=== PATIENT | female | born 1955 | race Caucasian/White ===

== ENCOUNTER 2020-08-13 12:29 | Outpatient (REF) | payer OTHER, SELFPAY ==
[2020-08-13 14:47] LABS: Alanine Aminotransferase 18 U/L (0-31); Albumin Level 4.1 g/dL (3.5-5.0); Alkaline Phosphatase 41 U/L (39-117); Anion Gap 15 (12-20); Aspartate Amino Transferase 18 U/L (5-31); Bilirubin Total 0.3 mg/dL (0.0-1.0); Blood Urea Nitrogen 38 mg/dL (9-16); Calcium 8.7 mg/dL (8.4-10.2); Carbon Dioxide 25 mmol/L (22-29); Chloride 104 mmol/L (96-108); Cholesterol 181 mg/dL; Estimated Glomerular Filt Rate 28; Glucose Fasting 135 mg/dL (60-99); HDL Cholesterol 69 mg/dL; LDL Cholesterol Calculated 93 mg/dl; Potassium 4.9 mmol/l (3.3-5.1); Sodium 139 mmol/L (135-145); Triglycerides 99 mg/dL
[2020-08-13 14:55] LABS: Creatinine Urine 79.03 mg/dL
[2020-08-13 15:12] LABS: Microalbum/Creatinine Ratio Ur 1003.4 ug/mg cr
[2020-08-13 15:21] LABS: Vitamin B12 461 pg/mL (200-900)
[2020-08-14 08:06] LABS: LDL Cholesterol Direct 80 mg/dL (<100)
== END 2020-08-13 12:30 | disposition home or self-care (01) ==
LOC: HO.10HDL 12:29
PROVIDERS: Visit Provider Internal Medicine Endocrinology, Diabetes & Metabolism
DX: E11.65 Type 2 diabetes mellitus with hyperglycemia (principal)
CPT/HCPCS: 80053; 80061; 82043; 82607; 83721

== ENCOUNTER → 2020-09-30 10:39 | Outpatient (BNVA) | payer OTHER, SELFPAY | PROVIDERS: PCP Internal Medicine; Referring Provider Internal Medicine; Visit Provider Internal Medicine Endocrinology, Diabetes & Metabolism | DX: Z76.89 Persons encountering health services in other specified circumstances (principal) ==

== ENCOUNTER 2020-10-04 11:16 | Outpatient (REF) | payer OTHER, SELFPAY ==
[2020-10-04 14:13] LABS: Estimated Average Glucose 143 mg/dL; Hemoglobin A1C 148.8595 umol/L; Hemoglobin A1c % 6.6 %
[2020-10-04 14:24] LABS: Alanine Aminotransferase 21 U/L (0-31); Albumin Level 4.1 g/dL (3.5-5.0); Alkaline Phosphatase 41 U/L (39-117); Anion Gap 11 (12-20); Aspartate Amino Transferase 20 U/L (5-31); Bilirubin Total 0.2 mg/dL (0.0-1.0); Blood Urea Nitrogen 29 mg/dL (9-16); Calcium 8.9 mg/dL (8.4-10.2); Carbon Dioxide 29 mmol/L (22-29); Chloride 103 mmol/L (96-108); Estimated Glomerular Filt Rate 32; Glucose Fasting 171 mg/dL (60-99); Potassium 4.8 mmol/l (3.3-5.1); Sodium 138 mmol/L (135-145); Total Protein 7.7 g/dL (6.5-8.0)
[2020-10-04 14:49] LABS: Free T4 (Free Thyroxine) 0.85 ng/dL (0.71-1.85); Thyroid Stimulating Hormone 0.65 uIU/mL (0.32-4.0)
== END 2020-10-04 11:17 | disposition home or self-care (01) ==
LOC: HO.10HDL 11:16
PROVIDERS: Visit Provider Internal Medicine Endocrinology, Diabetes & Metabolism
DX: E11.65 Type 2 diabetes mellitus with hyperglycemia (principal); E04.2 Nontoxic multinodular goiter
CPT/HCPCS: 36415; 80053; 83036; 84439; 84443

== ENCOUNTER 2020-12-27 11:33 | Outpatient (REF) | payer OTHER, SELFPAY ==
[2020-12-27 14:03] LABS: Anion Gap 13 (12-20); Blood Urea Nitrogen 38 mg/dL (9-16); Carbon Dioxide 27 mmol/L (22-29); Chloride 104 mmol/L (96-108); Estimated Glomerular Filt Rate 34; Glucose Random 151 mg/dL (60-115); Potassium 5.3 mmol/L (3.3-5.1); Sodium 139 mmol/L (135-145)
== END 2020-12-27 11:34 | disposition home or self-care (01) ==
LOC: HO.10HDL 11:33
PROVIDERS: Visit Provider Internal Medicine Endocrinology, Diabetes & Metabolism
DX: E11.21 Type 2 diabetes mellitus with diabetic nephropathy (principal)
CPT/HCPCS: 36415; 80048

== ENCOUNTER → 2021-01-09 10:28 | Outpatient (BNVA) | payer OTHER, SELFPAY | PROVIDERS: PCP Internal Medicine; Visit Provider Hospitalist | DX: J45.40 Moderate persistent asthma, uncomplicated (principal); G47.33 Obstructive sleep apnea (adult) (pediatric); Z99.89 Dependence on other enabling machines and devices | CPT/HCPCS: 99212 ==

== ENCOUNTER → 2021-02-06 13:04 | Outpatient (BNVA) | payer OTHER, SELFPAY | PROVIDERS: PCP Internal Medicine; Visit Provider Internal Medicine Endocrinology, Diabetes & Metabolism | DX: E11.65 Type 2 diabetes mellitus with hyperglycemia (principal); E11.21 Type 2 diabetes mellitus with diabetic nephropathy; E55.9 Vitamin D deficiency, unspecified; I10 Essential (primary) hypertension; E78.5 Hyperlipidemia, unspecified; E04.2 Nontoxic multinodular goiter; E66.9 Obesity, unspecified; Z79.4 Long term (current) use of insulin | CPT/HCPCS: 82947; 99212 ==

== ENCOUNTER 2021-02-20 11:11 | Outpatient (REF) | payer OTHER, SELFPAY ==
--- NOTE | ~2021-02-20 | US_ITS ---
EXAMINATION: US THYROID CLINICAL INFORMATION: Goiter. Type 2 diabetes mellitus with hyperglycemia. COMPARISON: Ultrasound soft tissue head/neck thyroid dated 03/19/2020 and 09/14/2018. TECHNIQUE: Linear transducer grayscale and color Doppler examination with attention to the region of the thyroid. FINDINGS: SIZE: Measurements of the thyroid lobes and nodules are given in sagittal, anteroposterior and transverse dimensions respectively. Right Thyroid Lobe: 5.3 x 2.1 x 2.2 cm, volume 12.8 mL. Previously 5.4 x 1.7 x 1.9 cm, volume 9.3 mL. Parenchyma: The gland echotexture is homogeneous. Thyroid vascularity is normal. Left Thyroid Lobe: 6.5 x 3.1 x 3.9 cm, volume 41.1 mL. Previously 7.3 x 3.1 x 3.8 cm, volume 44.5 mL. Parenchyma: The gland echotexture is heterogeneous. Thyroid vascularity is normal. Isthmus: 0.6 cm in maximum AP dimension. Previously 1.3 cm. Estimated total number of nodules greater than or equal to 1 cm: 3. Design Painter nodules are described as follows: 1. Location: Right mid. Size: 1.3 x 0.7 x 1.1 cm, volume 0.6 mL. Previously: 0.7 x 0.4 x 0.7 cm, volume 0.1 mL. Nodule characteristics: Composition: Mixed cystic and solid (1). Echogenicity: Hypoechoic (2). Shape: Not taller than wide (0). Margins: Smooth (0). Echogenic Foci: None (0). ACR TI-RADS total points: 3 Previous: n/a ACR TI-RADS category: 3 Previous: n/a Significant change in size (>/= 20% in 2 dimensions and minimal increase of 2 mm or 50% or greater increase in volume): Yes Change in features: No Change in ACR TI-RADS risk category: n/a 2. Location: Right inferior. Size: 1.5 x 1.1 x 1.1 cm, volume 1.0 mL. Previously: 1.0 x 0.7 x 0.8 cm, volume 0.3 mL. Nodule characteristics: Composition: Mixed cystic and solid (1). Echogenicity: Hypoechoic (2). Shape: Not taller than wide (0). Margins: Lobulated (2). Echogenic Foci: None (0). ACR TI-RADS total points: 5 Previous: n/a ACR TI-RADS category: 4 Previous: n/a Significant change in size (>/= 20% in 2 dimensions and minimal increase of 2 mm or 50% or greater increase in volume): Yes Change in features: No Change in ACR TI-RADS risk category: n/a 3. Location: Left mid. Size: 4.6 x 2.9 x 3.5 cm, volume 25.0 mL. Previously: 4.4 x 2.8 x 3.9 cm, volume 25 1 mL. Nodule characteristics: Composition: Solid (2). Echogenicity: Isoechoic (1). Shape: Not taller than wide (0). Margins: Irregular (2). Echogenic Foci: None (0). ACR TI-RADS total points: 5 Previous: n/a ACR TI-RADS category: 4 Previous: n/a Significant change in size (>/= 20% in 2 dimensions and minimal increase of 2 mm or 50% or greater increase in volume): No Change in features: No Change in ACR TI-RADS risk category: n/a NODES: No lymphadenopathy is seen in the tissue surrounding the thyroid gland. US/US thyroid IMPRESSION: Enlarged heterogeneous thyroid gland, left greater than right. There is interval increase in size in both right thyroid nodules. The large nodule in the left lobe does not appear appreciably changed. ACR TI-RADS RECOMMENDATION REFERENCE: Ultrasound-guided fine-needle aspiration, followup ultrasound, no further follow up. * TR1 (0 point) and TR 2 (2 points): No FNA or follow up * TR3 (3 points): FNA if more than or equal to 2.5 cm in maximum dimension, followup ultrasound in 1, 3 and 5 years if 1.5 to 2.4 cm in maximum dimension. * TR4 (4-6 points): FNA if more than or equal to 1.5 cm in maximum dimension, followup ultrasound in 1, 2, 3 and 5 years if 1 to 1.4 cm in maximum dimension. * TR5 (more than or equal to 7 points): FNA if more than or equal to 1 cm in maximum dimension, followup ultrasound every year for 5 years if 0.5 to 0.9 cm in maximum dimension. * TR3, TR4 or TR5 nodules that are below the size threshold for follow up receive no follow up.
== END 2021-02-20 11:12 | disposition home or self-care (01) ==
LOC: HO.US 11:11
PROVIDERS: Visit Provider Internal Medicine Endocrinology, Diabetes & Metabolism
DX: E04.2 Nontoxic multinodular goiter (principal); E11.65 Type 2 diabetes mellitus with hyperglycemia
CPT/HCPCS: 76536

== ENCOUNTER 2021-05-08 14:14 | Outpatient (REF) | payer OTHER, SELFPAY ==
[2021-05-08 16:58] LABS: Alanine Aminotransferase 21 U/L (0-31); Albumin Level 4.2 g/dL (3.5-5.0); Alkaline Phosphatase 46 U/L (39-117); Anion Gap 16 (12-20); Aspartate Amino Transferase 19 U/L (5-31); Bilirubin Total 0.4 mg/dL (0.0-1.0); Blood Urea Nitrogen 45 mg/dL (9-16); Calcium 9.6 mg/dL (8.4-10.2); Carbon Dioxide 25 mmol/L (22-29); Chloride 106 mmol/L (96-108); Cholesterol 203 mg/dL; Estimated Glomerular Filt Rate 28; Glucose Random 130 mg/dL (60-115); HDL Cholesterol 70 mg/dL; LDL Cholesterol Calculated 113 mg/dl; Potassium 5.5 mmol/L (3.3-5.1); Sodium 141 mmol/L (135-145); Total Protein 8.2 g/dL (6.5-8.0); Triglycerides 101 mg/dL
[2021-05-08 17:20] LABS: Free T4 (Free Thyroxine) 0.84 ng/dL (0.71-1.85); Thyroid Stimulating Hormone 0.71 uIU/mL (0.32-4.0); Vitamin D 25-OH Total 33.7 ng/mL (>30)
[2021-05-08 18:03] LABS: Creatinine Urine 73.25 mg/dL
[2021-05-08 18:20] LABS: Microalbum/Creatinine Ratio Ur 1709.2 ug/mg cr
[2021-05-09 08:06] LABS: LDL Cholesterol Direct 102 mg/dL (<100)
== END 2021-05-08 14:15 | disposition home or self-care (01) ==
LOC: HO.LAB 14:14
PROVIDERS: PCP Internal Medicine; Visit Provider Internal Medicine
DX: E11.9 Type 2 diabetes mellitus without complications (principal); J45.40 Moderate persistent asthma, uncomplicated; G47.33 Obstructive sleep apnea (adult) (pediatric); E78.5 Hyperlipidemia, unspecified; I10 Essential (primary) hypertension; E55.9 Vitamin D deficiency, unspecified; E04.2 Nontoxic multinodular goiter; R01.1 Cardiac murmur, unspecified; Z96.41 Presence of insulin pump (external) (internal); Z79.899 Other long term (current) drug therapy
CPT/HCPCS: 36415; 80053; 80061; 82043; 82306; 82947; 83721; 84439; 84443; 99212

== ENCOUNTER 2021-05-15 14:52 | Outpatient (REF) | payer OTHER, SELFPAY ==
[2021-05-15 15:53] LABS: Anion Gap 13 (12-20); Blood Urea Nitrogen 32 mg/dL (9-16); Calcium 9.4 mg/dL (8.4-10.2); Carbon Dioxide 25 mmol/L (22-29); Chloride 109 mmol/L (96-108); Estimated Glomerular Filt Rate 34; Potassium 5.4 mmol/L (3.3-5.1); Sodium 142 mmol/L (135-145)
[2021-05-15 15:58] LABS: Glucose Random 54 mg/dL (60-115)
== END 2021-05-15 14:53 | disposition home or self-care (01) ==
LOC: HO.LAB 14:52
PROVIDERS: PCP Internal Medicine; Visit Provider Internal Medicine
DX: E11.9 Type 2 diabetes mellitus without complications (principal)
CPT/HCPCS: 36415; 80048

== ENCOUNTER 2021-07-24 09:47 | Outpatient (REF) | payer OTHER, SELFPAY ==
--- NOTE | 2021-07-24 11:13 | PM.OP ---
Brief Operative Note Date of Service: 07/24/21 Pre-op diagnosis: Multinodular thyroid Procedure: This is doctor Mireya Mckeon. This is an ultrasound-guided fine-needle aspiration report. Date of Examination: 07/24/2021 Indication: Multinodular Thyroid Porcedure: Procedure was explained to the patient. Alternatives, the risk and benefits were discussed. Written consent was obtained. A time-out was also obtained. After sterile preparation, fine-needle aspiration of a Right Mid Pole 1.3 cm thyroid nodule was performed using direct ultrasound guidance to confirm accurate needle placement. Three aspirations were made using 27 gauge needles. Samples were submitted for cytology. 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 The patient tolerated the procedure well. Aftercare instructions were provided. Impression: Uncomplicated fine needle aspiration biopsy of a Right Mid Pole 1.3 cm thyroid nodule under ultrasound guidance. Surgeon: Mireya Mckeon, DO Was an Cask Maker used for this Procedure?: No Estimated blood loss (mL): 0
[2021-07-24] MEDS: Lidocaine HCl 1 % MPF 5 ML VIAL SUBCUT (12:10)
== END 2021-07-24 09:48 | disposition home or self-care (01) ==
LOC: HO.US 09:47
PROVIDERS: PCP Internal Medicine; Visit Provider Internal Medicine
DX: E04.2 Nontoxic multinodular goiter (principal)
CPT/HCPCS: 10005; 88172; 88173; 88177

== ENCOUNTER → 2021-08-05 13:03 | Outpatient (BNVA) | payer OTHER, SELFPAY | PROVIDERS: PCP Internal Medicine; Visit Provider Registered Nurse Diabetes Educator | DX: E11.9 Type 2 diabetes mellitus without complications (principal) | CPT/HCPCS: 99211 ==

== ENCOUNTER → 2021-08-07 11:22 | Outpatient (BNVA) | payer OTHER, SELFPAY | PROVIDERS: PCP Internal Medicine; Visit Provider Internal Medicine ==

== ENCOUNTER → 2021-09-09 12:32 | Outpatient (BNVA) | payer OTHER, SELFPAY | PROVIDERS: PCP Internal Medicine; Visit Provider Registered Nurse Diabetes Educator | DX: E11.9 Type 2 diabetes mellitus without complications (principal) | CPT/HCPCS: 99211 ==

== ENCOUNTER → 2021-09-10 13:46 | Outpatient (BNVA) | payer OTHER, SELFPAY | PROVIDERS: PCP Internal Medicine; Visit Provider Dietitian, Registered | DX: E11.21 Type 2 diabetes mellitus with diabetic nephropathy (principal) | CPT/HCPCS: 97802 ==

== ENCOUNTER → 2021-11-04 13:16 | Outpatient (BNVA) | payer OTHER, SELFPAY | PROVIDERS: PCP Internal Medicine; Visit Provider Dietitian, Registered | DX: E11.21 Type 2 diabetes mellitus with diabetic nephropathy (principal); Z96.41 Presence of insulin pump (external) (internal); Z71.3 Dietary counseling and surveillance | CPT/HCPCS: 97803 ==

== ENCOUNTER 2021-11-10 12:11 | Outpatient (REF) | payer OTHER, SELFPAY ==
[2021-11-10 14:13] LABS: Estimated Average Glucose 148 mg/dL; Hemoglobin A1c % 6.8 %
[2021-11-10 14:44] LABS: Free T4 (Free Thyroxine) 0.76 ng/dL (0.71-1.85); Thyroid Stimulating Hormone 0.94 uIU/mL (0.32-4.0); Vitamin D 25-OH Total 28.7 ng/mL (>30)
[2021-11-10 14:53] LABS: Creatinine Urine 80.27 mg/dL
[2021-11-10 14:54] LABS: Alanine Aminotransferase 23 U/L (0-31); Albumin Level 3.9 g/dL (3.5-5.0); Alkaline Phosphatase 44 U/L (39-117); Anion Gap 12 (12-20); Aspartate Amino Transferase 18 U/L (5-31); Bilirubin Total 0.3 mg/dL (0.0-1.0); Blood Urea Nitrogen 50 mg/dL (9-16); Calcium 9.3 mg/dL (8.4-10.2); Carbon Dioxide 26 mmol/L (22-29); Chloride 104 mmol/L (96-108); Cholesterol 296 mg/dL; Estimated Glomerular Filt Rate 32; Glucose Random 135 mg/dL (60-115); HDL Cholesterol 84 mg/dL; LDL Cholesterol Calculated 199 mg/dl; Sodium 137 mmol/L (135-145); Triglycerides 65 mg/dL
[2021-11-11 22:57] LABS: LDL Cholesterol Direct 186 mg/dL (<100)
== END 2021-11-10 12:12 | disposition home or self-care (01) ==
LOC: HO.10HDL 12:11
PROVIDERS: Visit Provider Internal Medicine
DX: E04.2 Nontoxic multinodular goiter (principal); E55.9 Vitamin D deficiency, unspecified; I10 Essential (primary) hypertension; E78.5 Hyperlipidemia, unspecified; E11.9 Type 2 diabetes mellitus without complications
CPT/HCPCS: 36415; 80053; 80061; 82043; 82306; 82947; 83036; 83721; 84439; 84443; 99212

== ENCOUNTER → 2021-11-18 13:27 | Outpatient (BNVA) | payer OTHER, SELFPAY | PROVIDERS: PCP Internal Medicine; Visit Provider Hospitalist | DX: J45.40 Moderate persistent asthma, uncomplicated (principal); G47.33 Obstructive sleep apnea (adult) (pediatric); H66.90 Otitis media, unspecified, unspecified ear | CPT/HCPCS: 99212 ==

== ENCOUNTER → 2021-12-01 13:59 | Outpatient (BNVA) | payer OTHER, SELFPAY | PROVIDERS: PCP Internal Medicine; Visit Provider Registered Nurse Diabetes Educator | DX: E11.9 Type 2 diabetes mellitus without complications (principal); Z79.4 Long term (current) use of insulin; Z96.41 Presence of insulin pump (external) (internal) | CPT/HCPCS: 99211 ==

== ENCOUNTER → 2022-02-25 08:33 | Outpatient (BNVA) | payer OTHER, SELFPAY | PROVIDERS: PCP Internal Medicine; Visit Provider Internal Medicine | DX: Z13.89 Encounter for screening for other disorder (principal) ==

== ENCOUNTER 2022-04-16 11:16 | Outpatient (REF) | payer OTHER, SELFPAY ==
[2022-04-16 11:45] LABS: MANUAL DIFF FLAG NO
[2022-04-16 12:19] LABS: Basophils Percent Auto 0.7 % (0-2); Eosinophils Absolute Auto 0.2 X10*3/uL (0.0-0.4); Hematocrit 37.7 % (37.0-47.0); Imm Gran Abs Auto 0.01 X10*3/uL (0.00-0.03); Imm Gran Pct Auto 0.2 % (0.0-0.4); Lymphocytes Percent Auto 33.4 % (20-40); Mean Corpuscular HGB Conc 31.8 g/dl (31.0-35.0); Mean Corpuscular Hemoglobin 31.7 pg (27.0-33.0); Mean Corpuscular Volume 99.5 fL (80.0-98.0); Mean Platelet Volume 10.3 fL (9.4-12.3); Monocytes Absolute Auto 0.5 X10*3/uL (0.1-1.2); Monocytes Percent Auto 7.9 % (2-11); Neutrophils Absolute Auto 3.3 x10*3/uL (2.0-8.3); Neutrophils Percent Auto 54.8 % (45-73); Platelet Count 170 X10*3/uL (160-400); Red Blood Count 3.79 X10*6/uL (4.20-5.50); White Blood Count 6.1 X10*3/uL (4.8-10.8)
[2022-04-16 12:28] LABS: Estimated Average Glucose 140 mg/dL; Hemoglobin A1C 151.7166 umol/L; Hemoglobin A1c % 6.5 %
[2022-04-16 12:46] LABS: Alanine Aminotransferase 18 U/L (0-31); Albumin Level 3.9 g/dL (3.5-5.0); Alkaline Phosphatase 48 U/L (39-117); Anion Gap 14 (12-20); Aspartate Amino Transferase 18 U/L (5-31); Bilirubin Total 0.3 mg/dL (0.0-1.0); Blood Urea Nitrogen 33 mg/dL (9-16); Calcium 9.1 mg/dL (8.4-10.2); Carbon Dioxide 26 mmol/L (22-29); Chloride 105 mmol/L (96-108); Estimated Glomerular Filt Rate 31; Glucose Random 114 mg/dL (60-115); Potassium 5.7 mmol/L (3.3-5.1); Sodium 139 mmol/L (135-145); Total Protein 7.9 g/dL (6.5-8.0)
[2022-04-16 12:59] LABS: Erythrocyte Sedimentation Rate 75 MM/HR (0-20)
[2022-04-16 13:08] LABS: Free T4 (Free Thyroxine) 0.95 ng/dL (0.71-1.85); Thyroid Stimulating Hormone 0.73 uIU/mL (0.32-4.0)
== END 2022-04-16 11:17 | disposition home or self-care (01) ==
LOC: HO.LAB 11:16
PROVIDERS: Absent Provider Internal Medicine; PCP Internal Medicine; Visit Provider Hospitalist
DX: J45.40 Moderate persistent asthma, uncomplicated (principal); G47.33 Obstructive sleep apnea (adult) (pediatric); E04.2 Nontoxic multinodular goiter; E11.9 Type 2 diabetes mellitus without complications
CPT/HCPCS: 36415; 80053; 82785; 83036; 84439; 84443; 85025; 85652; 86003; 99212

== ENCOUNTER → 2022-06-10 13:04 | Outpatient (REF) | payer OTHER, SELFPAY | LOC: HO.SL 13:04 | PROVIDERS: PCP Internal Medicine; Visit Provider Hospitalist | DX: G47.33 Obstructive sleep apnea (adult) (pediatric) (principal) | CPT/HCPCS: 95806 ==

== ENCOUNTER → 2022-07-21 12:20 | Outpatient (BNVA) | payer OTHER, SELFPAY | PROVIDERS: PCP Internal Medicine; Visit Provider Registered Nurse Diabetes Educator | DX: E11.9 Type 2 diabetes mellitus without complications (principal); Z96.41 Presence of insulin pump (external) (internal) | CPT/HCPCS: 99211 ==

== ENCOUNTER → 2022-08-04 13:08 | Outpatient (BNVA) | payer MEDICARE, MEDICAID, SELFPAY | PROVIDERS: PCP Internal Medicine; Visit Provider Registered Nurse Diabetes Educator | DX: E11.9 Type 2 diabetes mellitus without complications (principal) | CPT/HCPCS: 99211 ==

== ENCOUNTER → 2022-08-12 10:32 | Outpatient (BNVA) | payer MEDICARE, MEDICAID, SELFPAY | PROVIDERS: PCP Internal Medicine; Visit Provider Registered Nurse Diabetes Educator | DX: E11.9 Type 2 diabetes mellitus without complications (principal); Z96.41 Presence of insulin pump (external) (internal); Z79.01 Long term (current) use of anticoagulants | CPT/HCPCS: 99211 ==

== ENCOUNTER 2022-09-02 14:07 | Outpatient (REF) | payer MEDICARE, MEDICAID, SELFPAY ==
[2022-09-02 16:44] LABS: Alanine Aminotransferase 26 U/L (0-31); Albumin Level 3.8 g/dL (3.5-5.0); Alkaline Phosphatase 52 U/L (39-117); Anion Gap 12 (12-20); Aspartate Amino Transferase 24 U/L (5-31); Bilirubin Total 0.3 mg/dL (0.0-1.0); Blood Urea Nitrogen 48 mg/dL (9-16); Calcium 9.2 mg/dL (8.4-10.2); Carbon Dioxide 26 mmol/L (22-29); Chloride 109 mmol/L (96-108); Cholesterol 219 mg/dL; Estimated Glomerular Filt Rate 31; Glucose Random 109 mg/dL (60-115); HDL Cholesterol 63 mg/dL; LDL Cholesterol Calculated 131 mg/dl; Potassium 4.8 mmol/L (3.3-5.1); Sodium 142 mmol/L (135-145); Total Protein 7.9 g/dL (6.5-8.0); Triglycerides 127 mg/dL
[2022-09-02 18:19] LABS: Microalbum/Creatinine Ratio Ur 2720.7 ug/mg cr
[2022-09-03 07:28] LABS: LDL Cholesterol Direct 132 mg/dL (<100)
== END 2022-09-02 14:08 | disposition home or self-care (01) ==
LOC: HO.LAB 14:07
PROVIDERS: PCP Internal Medicine; Visit Provider Internal Medicine
DX: E11.22 Type 2 diabetes mellitus with diabetic chronic kidney disease (principal); E11.65 Type 2 diabetes mellitus with hyperglycemia; N18.30 Chronic kidney disease, stage 3 unspecified; E78.5 Hyperlipidemia, unspecified; E04.2 Nontoxic multinodular goiter; E55.9 Vitamin D deficiency, unspecified; Z71.89 Other specified counseling; Z79.4 Long term (current) use of insulin; Z96.41 Presence of insulin pump (external) (internal); Z79.899 Other long term (current) drug therapy
CPT/HCPCS: 36415; 80053; 80061; 82043; 82947; 83036; 83721; 99212

== ENCOUNTER → 2022-09-09 10:52 | Outpatient (BNVA) | payer MEDICARE, MEDICAID, SELFPAY | PROVIDERS: PCP Internal Medicine; Visit Provider Hospitalist | DX: J45.40 Moderate persistent asthma, uncomplicated (principal); G47.00 Insomnia, unspecified; Z79.899 Other long term (current) drug therapy | CPT/HCPCS: 99212 ==

== ENCOUNTER → 2022-10-09 15:00 | Outpatient (BNVA) | payer MEDICARE, MEDICAID, SELFPAY | PROVIDERS: PCP Internal Medicine; Visit Provider Registered Nurse Diabetes Educator | DX: E11.9 Type 2 diabetes mellitus without complications (principal) | CPT/HCPCS: 99211 ==

== ENCOUNTER → 2022-12-16 13:05 | Outpatient (BNVA) | payer OTHER, SELFPAY | PROVIDERS: PCP Internal Medicine; Visit Provider Internal Medicine | DX: E78.5 Hyperlipidemia, unspecified (principal); E04.2 Nontoxic multinodular goiter; E55.9 Vitamin D deficiency, unspecified; E11.9 Type 2 diabetes mellitus without complications; I10 Essential (primary) hypertension; Z96.41 Presence of insulin pump (external) (internal); Z79.4 Long term (current) use of insulin | CPT/HCPCS: 82947; 83036; 99212 ==

== ENCOUNTER 2023-01-07 11:14 | Outpatient (REF) | payer OTHER, SELFPAY ==
--- NOTE | ~2023-01-07 | US_ITS ---
EXAMINATION: US THYROID CLINICAL INFORMATION: Nontoxic multinodular goiter. COMPARISON: Ultrasound soft tissue head/neck thyroid dated 02/20/2021 and 03/19/2020. TECHNIQUE: Linear transducer grayscale and color Doppler examination with attention to the region of the thyroid. FINDINGS: SIZE: Measurements of the thyroid lobes and nodules are given in sagittal, anteroposterior and transverse dimensions respectively. Right Thyroid Lobe: 4.6 x 1.8 x 2.1 cm, volume 9 mL. Previously 5.3 x 2.1 x 2.2 cm, volume 13 mL. Parenchyma: The gland echotexture is homogeneous. Thyroid vascularity is normal. Left Thyroid Lobe: 6.2 x 3.1 x 4.0 cm, volume 39 mL. Previously 6.5 x 3.1 x 3.9 cm, volume 41 mL. Parenchyma: The gland echotexture is heterogeneous. Thyroid vascularity is normal. Isthmus: 0.8 cm in maximum AP dimension. Previously 0.6 cm. Estimated total number of nodules greater than or equal to 1 cm: 1. Chemistry Research Assistant nodules are described as follows: 1. Location: Right mid. Size: 0.7 x 0.3 x 0.6 cm, volume 0.07 mL. Previously: 1.3 x 0.7 x 1.1 cm, volume 0.6 mL. Nodule characteristics: Composition: Solid/almost completely solid (2). Echogenicity: Hypoechoic (2). Shape: Not taller than wide (0). Margins: Smooth (0). Echogenic Foci: None (0). ACR TI-RADS total points: 4 Previous: 3 ACR TI-RADS category: 4 Previous: 3 Significant change in size (>/= 20% in 2 dimensions and minimal increase of 2 mm or 50% or greater increase in volume): Change in features: Change in ACR TI-RADS risk category: 2. Location: Right mid. Size: 0.6 x 0.4 x 0.4 cm, volume 0.05 mL. Previously: Unable to compare to previous. Nodule characteristics: Composition: Mixed cystic and solid (1). Echogenicity: Hypoechoic (2). Shape: Not taller than wide (0). Margins: Smooth (0). Echogenic Foci: None (0). ACR TI-RADS total points: 3 ACR TI-RADS category: 3 3. Location: Right inferior. Size: 0.6 x 0.5 x 0.7 cm, volume 0.10 mL. Previously: Unable to compare to previous. Nodule characteristics: Composition: Solid/almost completely solid (2). Echogenicity: Isoechoic (1). Shape: Not taller than wide (0). Margins: Ill-defined (0). Echogenic Foci: None (0). ACR TI-RADS total points: 3 ACR TI-RADS category: 3 4. Location: Left mid. Size: 2.1 x 2.3 x 2.2 cm, volume 5.4 mL. Previously: Unable to compare to previous. Nodule characteristics: Composition: Solid/almost completely solid (2). Echogenicity: Isoechoic (1). Shape: Not taller than wide (0). Margins: Smooth (0). Echogenic Foci: None (0). ACR TI-RADS total points: 3 ACR TI-RADS category: 3 NODES: No lymphadenopathy is seen in the tissue surrounding the thyroid gland. US/US thyroid IMPRESSION: Heterogeneous thyroid gland. The left lobe is enlarged. Comparison with previous exam is difficult. Small right thyroid nodules appear decreased in size. Large left thyroid nodule probably not appreciably changed. According to TI-RADS criteria, fine-needle aspiration of left thyroid nodule recommended. Based on old reports, this has already been performed January 2014, December 2017, February 2019, and March 2020. ACR TI-RADS RECOMMENDATION REFERENCE: Ultrasound-guided fine-needle aspiration, followup ultrasound, no further follow up. * TR1 (0 point) and TR2 (2 points): No FNA or follow up * TR3 (3 points): FNA if more than or equal to 2.5 cm in maximum dimension, followup ultrasound in 1, 3 and 5 years if 1.5 to 2.4 cm in maximum dimension. * TR4 (4-6 points): FNA if more than or equal to 1.5 cm in maximum dimension, followup ultrasound in 1, 2, 3 and 5 years if 1 to 1.4 cm in maximum dimension. * TR5 (more than or equal to 7 points): FNA if more than or equal to 1 cm in maximum dimension, followup ultrasound every year for 5 years if 0.5 to 0.9 cm in maximum dimension. * TR3, TR4 or TR5 nodules that are below the size threshold for follow up receive no follow up.
== END 2023-01-07 11:15 | disposition home or self-care (01) ==
LOC: HO.US 11:14
PROVIDERS: PCP Internal Medicine; Visit Provider Internal Medicine
DX: E04.2 Nontoxic multinodular goiter (principal)
CPT/HCPCS: 76536

== ENCOUNTER 2023-04-07 09:23 | Outpatient (AMB) | payer OTHER, SELFPAY ==
--- NOTE | 2023-04-07 09:23 | A.OFFVIS_ITS ---
Intake Intake Visit Reasons: F/U T2DM Allergies leflunomide Allergy (Severe, Verified 04/07/23 10:47) Rash and Hives levofloxacin Allergy (Severe, Verified 04/07/23 10:47) Rash and Hives penicillin V Allergy (Severe, Verified 04/07/23 10:47) Rash and Hives Erythromycin Allergy (Severe, Uncoded 04/07/23 10:47) Rash and Hives Shrimp Allergy (Severe, Uncoded 04/07/23 10:47) Rash and Hives Medication List - Last Reconciled 04/07/23 by Mireya Mckeon, albuterol sulfate 90 mcg/actuation (ProAir HFA) 2 puffs inhalation Q6H PRN albuterol sulfate 2.5 mg (3 mL) inhalation Q6H PRN alcohol swabs (BD Alcohol Swabs) topical Use as directed 8 times a day; aspirin 81 mg PO DAILY atorvastatin 80 mg PO BEDTIME 30 days azelastine 2 sprays intranasal BID 30 days blood sugar diagnostic (Contour Next Test Strips) 4x daily blood-glucose sensor (SkillSurvey G6 Sensor device) As directed every 10 days blood-glucose transmitter (Dexcom G6 Transmitter device) As directed cholecalciferol (vitamin D3) 50 mcg PO DAILY 90 days ezetimibe 10 mg PO DAILY 30 days fluticasone propionate 110 mcg/actuation (Flovent HFA) 2 puffs inhalation BID 30 days furosemide 20 mg PO DAILY glucagon (Glucagon Emergency Kit) 1 mg subcut Q20M PRN golimumab (Simponi) 50 mg subcut Q4W insulin pump cart,auto,BT-cntr (Omnipod 5 G6 Intro Kit (Gen 5) subcutaneous cartridge with controller) As directed insulin pump cart,automated,BT (Omnipod 5 G6 Pods (Gen 5) subcutaneous cartridge) As directed insulin pump cartridge every 3 days, please dispense 10 cartridges ipratropium-albuterol 20-100 mcg/actuation (Combivent Respimat) 1 puff inhalation QID 30 days lancets (Accu-Chek Fastclix Lancet Drum) 1 ea topical QID lancing device with lancets (Accu-Chek FastClix Lancing Device kit) As directed four times a day loratadine (Claritin) 10 mg PO DAILY 30 days losartan 100 mg PO DAILY 90 days montelukast 10 mg PO BEDTIME awosmoiv-vlnixd-JY-thonzonium 3.3-3-10-0.5 mg/mL (Cortisporin-TC) 4 drps otic (ear) left TID 10 days Novolog U-100 Insulin aspart (insulin aspart U-100) Up to 100 units daily via insulin pump as directed subcutaneously daily; 30 days NS pantoprazole 20 mg PO DAILY PRN prednisone 5 mg PO Q OTHER DAY PRN semaglutide 1 mg (0.75 mL) subcut QWEEK 30 days sertraline (Zoloft) 100 mg PO DAILY Symbicort 160-4.5 mcg/actuation (budesonide-formoterol) 2 puffs inhalation BID 30 days NS HPI HPI Comments History of Present Illness Details 67 YO F with PMHx CKD Stage 3, NTMNG and T2DM who is seen in F/U for T2DM and a NTMNG. 1) T2DM: Initially diagnosed with T2DM Was initially started on treatment with Metformin, but was unable to tolerate it. Current regimen: Ozempic 1.0 mg once a week and Novolog via insulin pump. Pump/Sensor: Uses the Omnipod Insulin pump with the Dexcom G6. Pump Settings: Basal: 12:00 am - 1.6 Total Daily Basal Dose: 38.4 units/day ISF: 37 ICR: 13 Goal: 100 Her total daily dose of insulin is 54.5 units/day. She is using 64% basal, and 36% bolus insulin. DEXCOM G6. Unable to download today. She did not have labs completed prior to this visit. Most recent A1C: 6.3% 12/16/2022 down from 7.2% 09/02/2022. Reports low sugars never. Treats lows according to the rule of 15's. Has not had an eye exam since 2019. Is due. Denies retinopathy. Denies neuropathy. Has nephropathy, on Losartan 100 mg PO daily. UAC 2720.7 09/02/2022. Has HLD, on Rosuvastatin 40 mg PO daily. Last LDL 132 09/02/2022. Denies history of CAD. Had diabetes education. Diet/Carb counting: Does count carbs. Weight: Stable. 2) NTMNG: She has a nontoxic MNG and has had multiple FNA biopsies. She had her initial biopsy by Dr. Miramontes 02/01/2014 of her [facility] 3.4 cm thyroid nodule, with benign cytology. She then had an FNA biopsy 01/20/[address] Cisneros of her [facility] 3.5 cm thyroid nodule, with cytology revealing AUS, with benign affirma. She also underwent FNA biopsy of a RLP 1.0 cm nodule at this time, with benign cytology. She then had another FNA biopsy 03/16/2019 of her [facility] 3.6 cm thyroid nodule by Dr. Cisneros, which was benign. She again underwent another FNA biopsy by Dr. Cisneros 03/28/2020 of her [facility] 4.4 cm thyroid nodule, again benign. She had a repeat thyroid US completed 02/20/2021 which revealed interval growth of her RMP and RLP nodules. She then underwent FNA biopsy by 07/24/2021 of her [facility] 1.3 cm thyroid nodule, with benign cytology. Her RLP nodule was remeasured and was found to not meet indication for FNA biopsy at that time. She was complaining of compressive symptoms and requested a total thyroidectomy, so she was referred to Dr. Lackey and a L hemithyroidectomy was recommended, but this has not yet been scheduled. Thyroid US: 01/07/2023 Right Thyroid Lobe: 4.6 x 1.8 x 2.1 cm, volume 9 mL. Previously 5.3 x 2.1 x 2.2 cm, volume 13 mL. Parenchyma: The gland echotexture is homogeneous. Thyroid vascularity is normal. Left Thyroid Lobe: 6.2 x 3.1 x 4.0 cm, volume 39 mL. Previously 6.5 x 3.1 x 3.9 cm, volume 41 mL. Parenchyma: The gland echotexture is heterogeneous. Thyroid vascularity is normal. Isthmus: 0.8 cm in maximum AP dimension. Previously 0.6 cm. Estimated total number of nodules greater than or equal to 1 cm: 1. Chief Ophthalmic Technician nodules are described as follows: 1.? Location: Right mid. ?? ? Size: 0.7 x 0.3 x 0.6 cm, volume 0.07 mL. ?? ? Previously: 1.3 x 0.7 x 1.1 cm, volume 0.6 mL. ?? ? Nodule characteristics: ?? ? Composition: Solid/almost completely solid (2). ?? ? Echogenicity: Hypoechoic (2). ?? ? Shape: Not taller than wide (0). ?? ? Margins: Smooth (0). ?? ? Echogenic Foci: None (0).? ACR TI-RADS total points: 4 Previous: 3 ?? ? ACR TI-RADS category: 4 Previous: 3 ? Significant change in size (>/= 20% in 2 dimensions and minimal increase of 2 mm or 50% or greater increase in volume): ?? ? Change in features: ?? ? Change in ACR TI-RADS risk category: 2.? Location: Right mid. ?? ? Size: 0.6 x 0.4 x 0.4 cm, volume 0.05 mL. ?? ? Previously: Unable to compare to previous. ?? ? Nodule characteristics: ?? ? Composition: Mixed cystic and solid (1). ?? ? Echogenicity: Hypoechoic (2). ?? ? Shape: Not taller than wide (0). ?? ? Margins: Smooth (0). ?? ? Echogenic Foci: None (0).? ACR TI-RADS total points: 3 ?? ? ACR TI-RADS category: 3 3.? Location: Right inferior. ?? ? Size: 0.6 x 0.5 x 0.7 cm, volume 0.10 mL. ?? ? Previously: Unable to compare to previous. ?? ? Nodule characteristics: ?? ? Composition: Solid/almost completely solid (2). ?? ? Echogenicity: Isoechoic (1). ?? ? Shape: Not taller than wide (0). ?? ? Margins: Ill-defined (0). ?? ? Echogenic Foci: None (0).? ACR TI-RADS total points: 3 ?? ? ACR TI-RADS category: 3 4.? Location: Left mid. ?? ? Size: 2.1 x 2.3 x 2.2 cm, volume 5.4 mL. ?? ? Previously: Unable to compare to previous. ?? ? Nodule characteristics: ?? ? Composition: Solid/almost completely solid (2). ?? ? Echogenicity: Isoechoic (1). ?? ? Shape: Not taller than wide (0). ?? ? Margins: Smooth (0). ?? ? Echogenic Foci: None (0).? ACR TI-RADS total points: 3 ?? ? ACR TI-RADS category: 3 NODES: No lymphadenopathy is seen in the tissue surrounding the thyroid gland. Labs: Laboratory Tests 05/08/21 05/08/21 05/08/21 14:31 15:55 15:55 Sodium Potassium Creatinine Estimated GFR Hgb A1c (Clinic) 7.1 H Hemoglobin A1c % Albumin 4.2 Triglycerides 101 Cholesterol 203 LDL Cholesterol Di rect 102 H HDL Cholesterol 70 25-OH Vitamin D To michaela 33.7 TSH 0.71 Free T4 0.84 Microalb/Creat Rat io 05/08/21 05/15/21 11/10/21 Unknown 15:05 12:20 Sodium Potassium Creatinine 1.55 H 1.64 H Estimated GFR 34 32 Hgb A1c (Clinic) Hemoglobin A1c % Albumin Triglycerides Cholesterol LDL Cholesterol Di rect HDL Cholesterol 25-OH Vitamin D To michaela TSH Free T4 Microalb/Creat Rat io 1709.2 11/10/21 04/16/22 04/16/22 12:20 11:42 11:42 Sodium Potassium Creatinine 1.66 H Estimated GFR 31 Hgb A1c (Clinic) Hemoglobin A1c % 6.8 6.5 Albumin Triglycerides Cholesterol LDL Cholesterol Di rect HDL Cholesterol 25-OH Vitamin D To michaela TSH 0.73 Free T4 0.95 Microalb/Creat Rat io 09/02/22 09/02/22 09/02/22 14:38 15:16 15:16 Sodium 142 Potassium 4.8 Creatinine 1.67 H Estimated GFR 31 Hgb A1c (Clinic) 7.2 H Hemoglobin A1c % Albumin Triglycerides Cholesterol LDL Cholesterol Di rect 132 H HDL Cholesterol 25-OH Vitamin D To michaela TSH Free T4 Microalb/Creat Rat io 09/02/22 16:10 Sodium Potassium Creatinine Estimated GFR Hgb A1c (Clinic) Hemoglobin A1c % Albumin Triglycerides Cholesterol LDL Cholesterol Di rect HDL Cholesterol 25-OH Vitamin D To michaela TSH Free T4 Microalb/Creat Rat io 2720.7 COUNTS INCLUDE 234 BEDS AT THE [facility] Medical History Asthma Asthma Diabetes type 2, uncontrolled Diabetic nephropathy associated with type 2 diabetes mellitus Dyslipidemia Heart murmur HLD (hyperlipidemia) Hypertension Insomnia 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 Non-toxic multinodular goiter Obesity (BMI 30-39.9) TENZIN (obstructive sleep apnea) TENZIN on CPAP T2DM (type 2 diabetes mellitus) Vitamin D deficiency Surgical History History of appendectomy History of total abdominal hysterectomy and bilateral salpingo-oophorectomy Hx of colonoscopy Hx of eye surgery Hx of tubal ligation Hx of wisdom tooth extraction Family History Father Lung cancer Diabetes mellitus Mother Diabetes mellitus Pulmonary embolism Social History Household Members: Spouse Alcohol intake: never Patient Tobacco Use Status: Never used Tobacco Assessment & Plan Assessment & Plan (1) Non-toxic multinodular goiter: Code(s): E04.2 - Nontoxic multinodular goiter Plan: She underwent FNA biopsy of her RMP 1.3 cm thyroid nodule with benign cytology. She was complaining of compressive symptoms and did request a left hemithyroidectomy. I advised her to contact Dr. Lackey's office now to inquire when this is scheduled for. She did not do this. Her repeat thyroid US reveals a left mid pole 2.3 cm thyroid nodule. I will schedule her for FNA biopsy of this with IR. She will then F/U to review the results and determine the next steps in terms of surveillance or lobectomy. I spent 20 minutes in reviewing the record, seeing the patient and documenting in the medical record, including 5 minutes on the phone with the Patient. (2) T2DM (type 2 diabetes mellitus): Code(s): E11.9 - Type 2 diabetes mellitus without complications Plan: Patient with T2DM. She will F/U at her next scheduled visit for a dedicated Diabetes visit. The importance of adherence to prescribed regimen was discussed with the patient including checking finger sticks 3-4 times per day, using medication as prescribed, monitoring for hypoglycemia and treating any episode of hypoglycemia according to the rule of 15's. The signs and symptoms of hypoglycemia were reviewed in detail, as well as the rule of 15's to treat. Proper foot care was also discussed with the patient, and the importance of yearly dilated eye exam. The patient was asked to have copy of eye exam sent to our office for review. (3) Vitamin D deficiency: Code(s): E55.9 - Vitamin D deficiency, unspecified Plan: Will repeat levels with her next set of labs. Orders: Orders US biopsy thyroid Today E04.2 - Nontoxic multinodular goiter Telehealth Telehealth Location of provider rendering services: practice address Location of patient: address on file Patient Identification confirmed using: Name, : Yes Telehealth method: voice only Patient verbally consented to treatment: Yes Patient verbally consented to billing insurance company: Yes Patient informed of any privacy concerns related to visit: Yes Coding Level of Care Code Tele Est Pt Level 3 (52469) Diagnoses Non-toxic multinodular goiter E04.2 T2DM (type 2 diabetes mellitus) E11.9 Vitamin D deficiency E55.9
== END 2023-04-07 11:04 | disposition home or self-care (01) ==
LOC: HO.ENCR 09:23
PROVIDERS: PCP Internal Medicine; Visit Provider Internal Medicine
DX: E04.2 Nontoxic multinodular goiter (principal); E11.9 Type 2 diabetes mellitus without complications; E55.9 Vitamin D deficiency, unspecified
CPT/HCPCS: 99443

== ENCOUNTER → 2023-04-07 09:23 | Outpatient (BNVA) | payer OTHER, SELFPAY | PROVIDERS: PCP Internal Medicine; Visit Provider Internal Medicine ==

== ENCOUNTER 2023-04-12 11:09 | Outpatient (AMB) | payer OTHER, SELFPAY ==
[2023-04-12 11:28] VITALS: BP 140/52; PULSE 88; O2SAT 96; BMI 37.7
--- NOTE | 2023-04-12 11:28 | A.OFFVIS_ITS ---
Intake Vital Signs 04/12/23 11:28 Height 5 ft 1 in Weight 199 lb 8.293 oz BMI 37.7 BP 140/52 H Blood Pressure Location Lt brachial Position Sitting Pulse 88 Pulse Oximetry (%) 96 Oxygen Delivery Method Room Air Intake Visit Reasons: asthma Allergies leflunomide Allergy (Severe, Verified 04/12/23 11:33) Rash and Hives levofloxacin Allergy (Severe, Verified 04/12/23 11:33) Rash and Hives penicillin V Allergy (Severe, Verified 04/12/23 11:33) Rash and Hives Erythromycin Allergy (Severe, Uncoded 04/12/23 11:33) Rash and Hives Shrimp Allergy (Severe, Uncoded 04/12/23 11:33) Rash and Hives HPI HPI Comments History of Present Illness Details The patient is a 67 y/o woman with a history of asthma and TENZIN on CPAP. Her asthma is in good controlled on her current respiratory medications. She has not taking inhaled corticosteroid at this time in seems to be doing okay without it which is reassuring. She does have a Combivent Respimat device that she uses twice a day with good effect. She is not interested inhaled cortical steroid at this time. She is concerned about her diabetes. In the meantime her CPAP therapy has been affecting beneficial. She does try to use it more than 4 hours a night. However, has been having some issues with her insurance company in her [employer] company which is getting bills and she is concerned because she is not getting any supplies at this time. In addition to that she is complaining of nasal congestion. She thinks she has allergies going on. Resulting a postnasal drip and cough. Has not had allergy testing. 04/16/2022 the patient is here for a pulmonary follow-up visit. The patient has been having increasing daytime drowsiness. Her [place] score is elevated 08/20. She has significant amount of cardiovascular risk factors. She has a history of sub to sleep apnea and was provided with a CPAP machine in the past. However she has not been active in CPAP now for more than a year. Will go ahead and order another sleep study in order to reassess her level of sleep apnea in view of her cardiovascular risk factors in this restart her on CPAP therapy. She continues to have increasing shortness of breath and wheezing. Moderate severity. She does have some wheezing on examination. She has been using allergy medicine. 09/09/2022 the patient is here for a pulmonary follow-up visit. Overall the patient continues to be about the same. She does complaint of significant daytime drowsiness. Her P[place] score still is elevated at 11 over 24. We did review her home sleep study demonstrating an AHI of 0.5. I explained to the patient that this is a very good result and she does not have any evidence of any sleep apnea at least on the home sleep study. On further questioning the patient does have a very poor sleep hygiene. She goes to bed usually around 2 or 3 in the morning. She has a hard time falling asleep. Then she stays busy with TB or with her phone. The patient does have a gabapentin at home. She will try taking the gabapentin 1 hour before sleep and then increase it a ccordingly. I am hopeful that this can help her become more drowsy and start having better sleep hygiene. If the patient starts sleeping better and she still continues to have significant daytime drowsiness then an in-lab sleep study will be warranted. The meantime the patient continues with respiratory medicines with good effect. She has not had any recent exacerbations. Otherwise patient is without any other complaints. 04/12/2023 the patient is here for a pulmonary follow-up visit. She is complaining of worsening cough. She has been noticing when she goes outside specially around grass or any other allergen she can develop worsening cough and then she gets upset. She has been having some chest congestion. [id number] severity. She states that the last time she had that she had bronchitis. Otherwise she is using her respiratory therapy. It is partially helpful. On examination she does have some rhonchi and coarse breath sounds on the left base. Therefore will go ahead and start treating her for potential bacterial bronchitis. The patient also had blood work the back in March 2022 including a sedimentation rate which was elevated at 75. Prior to that was elevated up to the 90s. The patient will go and have blood work and also a chest x-ray when she is able. The if she she continues use her respiratory therapy as prescribed with good effect. 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 Non-toxic multinodular goiter Obesity (BMI 30-39.9) TENZIN (obstructive sleep apnea) TENZIN on CPAP T2DM (type 2 diabetes mellitus) Vitamin D deficiency Surgical History History of appendectomy History of total abdominal hysterectomy and bilateral salpingo-oophorectomy Hx of colonoscopy Hx of eye surgery Hx of tubal ligation Hx of wisdom tooth extraction Family History Father Lung cancer Diabetes mellitus Mother Diabetes mellitus Pulmonary embolism Social History Household Members: Spouse Alcohol intake: never Patient Tobacco Use Status: Never used Tobacco Review of Systems Const Reports daytime sleepiness, Reports difficulty sleeping, Denies excessive sweating, Denies fatigue, Denies headache(s), Reports snoring, Denies weight gain and Denies weight loss Eyes Denies blurry vision and Denies diplopia ENT Denies change in voice, Denies dysphagia, Denies headache(s) and Denies hoarse ness Card Denies chest pain, Denies irregular heart rhythm, Denies dyspnea and Reports other Resp Reports chest congestion, Reports cough, Denies dyspnea, Reports snoring and Reports wheezing GI Denies abdominal pain, Denies change in bowel habits, Denies dysphagia, Denies diarrhea and Denies nausea Musc Denies myalgias, Denies muscle cramps, Denies numbness and Denies tingling Skin/Breast Denies hirsutism and Denies alopecia Neuro Denies headache(s), Denies numbness and Denies tingling Psych Denies anxiety and Denies depression Endo Denies cold intolerance, Denies excessive sweating, Denies fatigue and Denies heat intolerance Leighton/Lymph Denies easy bruising Aller/Immun Reports wheezing Physical Exam Vital Signs: Last Vital Signs Pulse 88 04/12/23 11:28 BP 140/52 H 04/12/23 11:28 Pulse Ox 96 04/12/23 11:28 Oxygen Delivery Method Room Air 04/12/23 11:28 BMI result Body Mass Index 37.7 Const General: alert Neck Neck: Yes normal visual inspection, Yes full ROM, Yes no lymphadenopathy and Yes supple Chest Chest palpation & inspection: normal inspection of the chest Resp Auscultation: diminished lung sounds and other (coarse breathsounds on the left base) Cardio Rate: regular rate Rhythm: regular rhythm Heart sounds: S1 normal heart sound present and S2 normal heart sound present GI Palpation (GI): Soft to palpation and nontender Auscultation: normal bowel sounds Skin General skin exam: rashes and/or lesions noted Assessment & Plan Assessment & Plan (1) Asthma: Code(s): J45.909 - Unspecified asthma, uncomplicated Qualifiers: Asthma complication type: uncomplicated Asthma persistence: persistent Asthma severity: moderate Qualified Code(s): J45.40 - Moderate persistent asthma, uncomplicated (2) Insomnia: Code(s): G47.00 - Insomnia, unspecified (3) Bronchitis: Code(s): J40 - Bronchitis, not specified as acute or chronic Plan continue Symbicort WILMA as needed continue astelin nasal spray start Doxycycline CXR Bloodwork stopped Gabapentin 300mg Consider in lab PSG if continues to have daytime drowsiness even with good sleep hygiene F/U 6 months Orders: Orders Complete Blood Count Auto Diff Today J40 - Bronchitis, not specified as acute or chronic, J45.909 - Unspecified asthma, uncomplicated Erythrocyte Sedimentation Rate Today J40 - Bronchitis, not specified as acute or chronic, J45.909 - Unspecified asthma, uncomplicated Basic Metabolic Panel Today J40 - Bronchitis, not specified as acute or chronic, J45.909 - Unspecified asthma, uncomplicated Immunoglobulin E Today J40 - Bronchitis, not specified as acute or chronic, J45.909 - Unspecified asthma, uncomplicated XR chest 2V Today J40 - Bronchitis, not specified as acute or chronic, J45.909 - Unspecified asthma, uncomplicated Medications: New benzonatate 200 mg PO BID 30 days PRN 60 caps 0RF cough doxycycline monohydrate 100 mg PO BID 14 days 28 tabs 0RF Coding Level of Care Code Est Pt Level 4 (90141) Diagnoses Asthma J45.40 Asthma complication type: uncomplicated Asthma persistence: persistent Asthma severity: moderate Insomnia G47.00 Bronchitis J40 Time Spent (min) 18
== END 2023-04-12 11:52 | disposition home or self-care (01) ==
PROVIDERS: PCP Internal Medicine; Visit Provider Hospitalist
DX: J45.40 Moderate persistent asthma, uncomplicated (principal); G47.00 Insomnia, unspecified; J40 Bronchitis, not specified as acute or chronic
CPT/HCPCS: 99214

== ENCOUNTER → 2023-04-12 11:09 | Outpatient (BNVA) | payer OTHER, SELFPAY | PROVIDERS: Visit Provider Hospitalist | DX: J45.40 Moderate persistent asthma, uncomplicated (principal); J40 Bronchitis, not specified as acute or chronic; G47.00 Insomnia, unspecified; Z79.899 Other long term (current) drug therapy | CPT/HCPCS: 99212 ==

== ENCOUNTER 2023-05-04 13:51 | Outpatient (REF) | payer OTHER, SELFPAY ==
--- NOTE | ~2023-05-04 | US_ITS ---
EXAMINATION: US SOFT TISSUE HEAD/NECK THYROID CLINICAL INFORMATION: Left mid pole 2.3 cm thyroid nodule. COMPARISON: Ultrasound thyroid 01/07/2023 and 02/20/2021. TECHNIQUE: Linear transducer martinez-scale and color Doppler examination of the left mid pole. US/US thyroid FINDINGS AND IMPRESSION: This patient, who has a multinodular goiter, was scheduled to undergo ultrasound-guided FNA. The ultrasound worksheet notes that the procedure was canceled by Dr. Quezada. The images obtained of the left thyroid lobe show a diffusely enlarged heterogeneous gland without any discrete nodule to target for the biopsy procedure.
--- NOTE | ~2023-05-04 | XR_ITS ---
EXAMINATION: XR CHEST CLINICAL INFORMATION: Unspecified asthma COMPARISON: None available. TECHNIQUE: 2 views of the chest were obtained. FINDINGS: The lungs are well-expanded and clear. The heart size and pulmonary vascularity is normal. There is moderate spondylosis mid and lower dorsal spine. No aggressive lytic or sclerotic process seen. XR/XR chest 2V IMPRESSION: Unremarkable chest exam.
== END 2023-05-04 13:52 | disposition home or self-care (01) ==
LOC: HO.US 13:51
PROVIDERS: Visit Provider Internal Medicine Endocrinology, Diabetes & Metabolism
DX: E04.2 Nontoxic multinodular goiter (principal); J45.909 Unspecified asthma, uncomplicated
CPT/HCPCS: 71046; 76536

== ENCOUNTER 2023-10-11 10:56 | Outpatient (AMB) | payer OTHER, SELFPAY ==
[2023-10-11 10:59] VITALS: BP 132/62; PULSE 76; O2SAT 96; BMI 38.1
--- NOTE | 2023-10-11 10:59 | A.OFFVIS_ITS ---
Intake Vital Signs 10/11/23 10:59 Height 5 ft 1 in Weight 201 lb 11.567 oz BMI 38.1 BP 132/62 Blood Pressure Location Rt brachial Position Sitting Pulse 76 Pulse Source Pulse Oximeter Pulse Oximetry (%) 96 Oxygen Delivery Method Room Air Intake Visit Reasons: asthma Allergies leflunomide Allergy (Severe, Verified 10/11/23 11:03) Rash and Hives levofloxacin Allergy (Severe, Verified 10/11/23 11:03) Rash and Hives penicillin V Allergy (Severe, Verified 10/11/23 11:03) Rash and Hives Erythromycin Allergy (Severe, Uncoded 10/11/23 11:03) Rash and Hives Shrimp Allergy (Severe, Uncoded 10/11/23 11:03) Rash and Hives HPI HPI Comments History of Present Illness Details The patient is a 68 y/o woman with a history of asthma and TENZIN on CPAP. Her asthma is in good controlled on her current respiratory medications. She has not taking inhaled corticosteroid at this time in seems to be doing okay without it which is reassuring. She does have a Combivent Respimat device that she uses twice a day with good effect. She is not interested inhaled cortical steroid at this time. She is concerned about her diabetes. In the meantime her CPAP therapy has been affecting beneficial. She does try to use it more than 4 hours a night. However, has been having some issues with her insurance company in her [employer] company which is getting bills and she is concerned because she is not getting any supplies at this time. In addition to that she is complaining of nasal congestion. She thinks she has allergies going on. Resulting a postnasal drip and cough. Has not had allergy testing. 04/12/2023 the patient is here for a pulm onary follow-up visit. She is complaining of worsening cough. She has been noticing when she goes outside specially around grass or any other allergen she can develop worsening cough and then she gets upset. She has been having some chest congestion. [id number] severity. She states that the last time she had that she had bronchitis. Otherwise she is using her respiratory therapy. It is partially helpful. On examination she does have some rhonchi and coarse breath sounds on the left base. Therefore will go ahead and start treating her for potential bacterial bronchitis. The patient also had blood work the back in March 2022 including a sedimentation rate which was elevated at 75. Prior to that was elevated up to the 90s. The patient will go and have blood work and also a ches t x-ray when she is able. The if she she continues use her respiratory therapy as prescribed with good effect. 10/11/2023 the patient is here for a pulm onary follow-up visit. The patient continues to have some shortness breath with activity. She has been using her Symbicort with good effect. She also has a rescue inhaler that she uses less than 2 times week. She has been struggling with her daytime drowsiness. She does have a history sleep apnea although her last sleep study did not demonstrate any sleep apnea. She does have headaches in the morning and has witnessed apneic episodes and also snoring from her . He is very concerned with her untreated apnea this time. EPWORTH 08/20. The best way to further evaluate the symptoms would be with an in-lab sleep study. Will request 1 at this time specially since she failed a home sleep study. In addition to that she did have a chest x-ray done over the fall. I did personally review with the patient. It appears that her cardiac size is little bit bigger than normal and she also has a small murmur. Therefore will go ahead and request an echocardiogram. The patient will continue with current respiratory therapy and will follow-up in 3-4 months to review the results. 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 Vitamin D deficiency Diabetic nephropathy associated with type 2 diabetes mellitus Diabetes type 2, uncontrolled Surgical History Hx of wisdom tooth extraction Hx of eye surgery Hx of colonoscopy History of total abdominal hysterectomy and bilateral salpingo-oophorectomy Hx of tubal ligation History of appendectomy Family History Father Lung cancer Diabetes mellitus Mother Diabetes mellitus Pulmonary embolism Social History Household Members: Spouse Alcohol intake: never Patient Tobacco Use Status: Never used Tobacco Review of Systems Const Reports daytime sleepiness, Reports difficulty sleeping, Denies excessive sweati ng, Denies fatigue, Reports headache(s), Reports snoring, Denies weight gain and Denies weight loss Eyes Denies blurry vision and Denies diplopia ENT Denies change in voice, Denies dysphagia, Reports headache(s) and Denies hoarseness Card Denies chest pain, Denies irregular heart rhythm, Denies dyspnea and Reports other Resp Reports chest congestion, Reports cough, Denies dyspnea, Reports snoring and Reports wheezing GI Denies abdominal pain, Denies change in bowel habits, Denies dysphagia, Denies diarrhea and Denies nausea Musc Denies myalgias, Denies muscle cramps, Denies numbness and Denies tingling Skin/Breast Denies hirsutism and Denies alopecia Neuro Reports headache(s), Denies numbness and Denies tingling Psych Denies anxiety and Denies depression Endo Denies cold intolerance, Denies excessive sweating, Denies fatigue and Denies heat intolerance Leighton/Lymph Denies easy bruising Aller/Immun Reports wheezing Physical Exam Vital Signs: Last Vital Signs Pulse 76 10/11/23 10:59 BP 132/62 10/11/23 10:59 Pulse Ox 96 10/11/23 10:59 Oxygen Delivery Method Room Air 10/11/23 10:59 BMI result Body Mass Index 38.1 Const General: alert Neck Neck: Yes normal visual inspection, Yes full ROM, Yes no lymphadenopathy and Yes supple Chest Chest palpation & inspection: normal inspection of the chest Resp Auscultation: diminished lung sounds Cardio Rate: regular rate Rhythm: regular rhythm Heart sounds: S1 normal heart sound present and S2 normal heart sound present GI Palpation (GI): Soft to palpation and nontender Auscultation: normal bowel sounds Skin General skin exam: rashes and/or lesions noted Assessment & Plan Assessment & Plan (1) Asthma: Code(s): J45.909 - Unspecified asthma, uncomplicated Qualifiers: Asthma complication type: uncomplicated Asthma persistence: persistent Asthma severity: moderate Qualified Code(s): J45.40 - Moderate persistent asthma, uncomplicated (2) Insomnia: Code(s): G47.00 - Insomnia, unspecified Qualifiers: Insomnia type: primary Qualified Code(s): F51.01 - Primary insomnia (3) Cardiomegaly: Comment: on CXR Code(s): I51.7 - Cardiomegaly (4) TENZIN (obstructive sleep apnea): Comment: elevated EPWORTH 08/20 with 2 neg home PSG Code(s): G47.33 - Obstructive sleep apnea (adult) (pediatric) Plan continue Symbicort WILMA as needed continue astelin nasal spray ECHO In Lab PSG for persistent head time drowsiness and a previous h/o TENZIN. Home PSG have not been diagnostic F/U 3-4 months Orders: Orders CA echo transthoracic complete Today I51.7 - Cardiomegaly RT PSG in-lab sleep study Today G47.33 - Obstructive sleep apnea (adult) (pediatric) Medications: Refilled benzonatate 200 mg PO BID 30 days PRN 60 caps 6RF cough Coding Level of Care Code Est Pt Level 4 (92078) Diagnoses Moderate persistent asthma without complication J45.40 Asthma complication type: uncomplicated Asthma persistence: persistent Asthma severity: moderate Primary insomnia F51.01 Insomnia type: primary Cardiomegaly I51.7 TENZIN (obstructive sleep apnea) G47.33 Time Spent (min) 17
== END 2023-10-11 11:23 | disposition home or self-care (01) ==
PROVIDERS: PCP Internal Medicine; Visit Provider Hospitalist
DX: J45.40 Moderate persistent asthma, uncomplicated (principal); F51.01 Primary insomnia; I51.7 Cardiomegaly; G47.33 Obstructive sleep apnea (adult) (pediatric)
CPT/HCPCS: 99214

== ENCOUNTER → 2023-10-11 10:56 | Outpatient (BNVA) | payer OTHER, SELFPAY | PROVIDERS: PCP Internal Medicine; Visit Provider Hospitalist | DX: J45.40 Moderate persistent asthma, uncomplicated (principal); G47.33 Obstructive sleep apnea (adult) (pediatric); F51.01 Primary insomnia; I51.7 Cardiomegaly | CPT/HCPCS: 99212 ==

== ENCOUNTER → 2023-12-01 11:07 | Outpatient (REF) | payer OTHER, SELFPAY ==
--- NOTE | 2023-12-01 11:13 | CA_ITS ---
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 Normal LV ejection fraction 55-60% with mild LVH with grade 1 diastolic dysfunction 2. Mild aortic stenosis 3. Normal RV systolic pressure 4. Small circumferential pericardial effusion Findings Left Ventricle Normal left ventricular size and systolic function. There is mildly increased left ventricular wall thickness. The visually estimated ejection fraction is between 55-60%. Spectral Doppler is indicative of an impaired relaxation filling pattern. E/E prime ratio is <8, consistent with normal filling pressures. Evidence suggests grade I (mild) diastolic dysfunction. Right Ventricle The right ventricle was not well visualized. There is normal right ventricular systolic function. Atria The left atrium is normal in size. Interatrial shunt cannot be excluded. The right atrium was not well visualized. Aortic Valve The aortic valve was not well visualized. There is mild calcification of the aortic valve. There is mild aortic valve stenosis. The peak aortic velocity is 2.11 m/s with a calculated peak gradient of 18 mmHg. The mean gradient is 10 mmHg. The aortic valve area is 1.63 cm2. There is no aortic valve regurgitation. Mitral Valve The mitral valve was not well visualized. There is no mitral valve regurgitation. There is no mitral valve stenosis. Pulmonic Valve The pulmonic valve was not well visualized. Tricuspid Valve Likely normal tricuspid valve structure and function. There is trace tricuspid valve regurgitation. The right ventricular systolic pressure is normal. The right ventricular systolic pressure is 18 mmHg. Normal right atrial pressure. There is no evidence of pulmonary hypertension. Great Vessels The aorta was not well visualized. The pulmonary artery was not well visualized. Venous The inferior vena cava is normal in size and collapses greater than 50% with inspiration. Pericardium/Pleural There is a small circumferential pericardial effusion. Measurements 2D Linear Measurements IVSd: 1.23 0.6-0.9/0.6-1.0 cm LVIDd: 3.88 3.9-5.3/4.2-5.9 cm LVIDd Index: 2.07 2.4-3.2/2.2-3.1 cm/m2 LVIDs: 2.48 2.0-3.6 cm LVPWd: 1.22 0.7-1.1 cm Ao Root: 2.90 2.1-3.5 cm LA Diam: 2.70 2.7-3.8/3.0-4.0 cm LAIDs Index: 1.44 1.5-2.3 cm/m2 LV Mass: 203.03 67-162/88-224 g LV Mass Index: 108.57 43-95/49-115 g/m2 LVOT Diam: 2.00 3.0+(-)1.3 cm Mitral Valve MV Pk E: 0.67 MV PK A: 0.93 MV Decel Time: 240.00 E/A: 0.70 E'Lateral: 8.05 E'Medial: 4.13 E/E' Med: 16.20 E/E' Lat: 8.30 PHT: 70.00 MVA PHT: 3.14 Decel [place]: 2.78 Aortic Valve AoV Pk Kurtis: 2.11 AoV Mn Kurtis: 1.48 AoV VTI: 0.41 AoV Pk Grad: 18.00 Aov Mn Grad: 10.00 TAMMY Cont.VTI: 1.63 LVOT LVOT Pk Kurtis: 0.95 LVOT Mn Kurtis: 0.61 LVOT VTI: 0.21 LVOT Pk Grad: 4.00 LVOT Mn Grad: 2.00 LVOT Diam: 2.00 LVOT Area: 3.14 Diastolic Function MV Pk E: 0.67 MV Pk A: 0.93 E/A: 0.70 E'Medial: 4.13 E/E' Med: 16.20 E' Laterial: 8.05 E/E' Lat: 8.30 Tricuspid Valve TR Pk Kurtis: 1.94 TR Pk Grad: 15.00 RA Press: 3.00 RVSP: 18.00 Great Vessels Aorta Ao Root-2D: 2.90 2.0-3.7 cm Ao Asc: 3.00 2.1-3.4 cm Pulmonary Valve PV Pk Kurtis: 1.25 Peak PV Grad: 6.00 Updated in Other Vendor System with Status of Final Aleksander Causey MD electronically signed on 12/01/2023 3:23:21 PM with status of Final
== END ==
LOC: HO.CARD 11:07
PROVIDERS: Visit Provider Hospitalist
DX: I51.7 Cardiomegaly (principal)
CPT/HCPCS: 93306; Q9957

== ENCOUNTER → 2023-12-01 11:13 | Outpatient (BNV) | payer OTHER, SELFPAY | PROVIDERS: Visit Provider Internal Medicine Cardiovascular Disease | DX: I35.0 Nonrheumatic aortic (valve) stenosis (principal) | CPT/HCPCS: 93306 ==

== ENCOUNTER 2024-03-29 08:55 | Outpatient (REF) | payer OTHER, SELFPAY ==
[2024-03-29 10:26] LABS: MANUAL DIFF FLAG NO
[2024-03-29 10:39] LABS: Basophils Percent Auto 0.5 % (0-2); Eosinophils Absolute Auto 0.2 X10*3/uL (0.0-0.4); Eosinophils Percent Auto 2.1 % (0-4); Hemoglobin 11.6 g/dl (12.0-16.0); Imm Gran Abs Auto 0.03 X10*3/uL (0.00-0.03); Imm Gran Pct Auto 0.4 % (0.0-0.4); Lymphocytes Absolute Auto 1.8 X10*3/uL (1.2-4.9); Lymphocytes Percent Auto 23.3 % (20-40); Mean Corpuscular HGB Conc 32.2 g/dl (31.0-35.0); Mean Corpuscular Volume 99.2 fL (80.0-98.0); Mean Platelet Volume 10.1 fL (9.4-12.3); Monocytes Absolute Auto 0.5 X10*3/uL (0.1-1.2); Monocytes Percent Auto 6.9 % (2-11); Neutrophils Percent Auto 66.8 % (45-73); Platelet Count 177 X10*3/uL (160-400); Red Blood Count 3.63 X10*6/uL (4.20-5.50); Red Cell Distribution Width 12.4 % (11.0-16.0); White Blood Count 7.5 X10*3/uL (4.8-10.8)
[2024-03-29 11:16] LABS: Anion Gap 12 (12-20); Blood Urea Nitrogen 38 mg/dL (9-16); Calcium 9.7 mg/dL (8.4-10.2); Carbon Dioxide 25 mmol/L (22-29); Chloride 109 mmol/L (96-108); Estimated Glomerular Filt Rate 26; Glucose Random 124 mg/dL (60-115); Sodium 141 mmol/L (135-145)
[2024-03-29 11:27] LABS: Erythrocyte Sedimentation Rate 90 MM/HR (0-20)
[2024-03-31 15:39] LABS: Immunoglobulin G Subclass 1 1232 mg/dL (382-929); Immunoglobulin G Subclass 2 151 mg/dL (241-700); Immunoglobulin G Subclass 3 15 mg/dL (22-178); Immunoglobulin G Subclass 4 24.4 mg/dL (4-86); Immunoglobulin G Total 1691 mg/dL (600-1540)
[2024-03-31 22:48] LABS: Antibody to SS-A Antigen >8.0 POS AI (<1.0 NEG); Antibody to SS-B Antigen 6.3 POS AI (<1.0 NEG)
[2024-03-31 23:13] LABS: Class Alternaria alternata 0; Class Aspergillus fumigatus 0; Class Bermuda Grass 0; Class Birch 0; Class Cat Dander 0; Class Cladosporium herbarum 0; Class Cockroach 0; Class Common Ragweed 0; Class Cottonwood 0; Class Derm. pterony 0; Class Dermatophagoides farinae 0; Class Dog Dander 0; Class Elm 0; Class Maple Box Elder 0; Class Mountain Cedar 0; Class Mouse Urine Protein 0; Class Mugwort 0; Class Oak 0; Class Penicillium crysogenum 0; Class Rough Pigweed 0; Class Sheep Sorrel 0; Class Sycamore 0; Class Timothy Grass 0; Class Walnut Tree 0; Class White Ash 0; Class White Mulberry 0; D001 IgE D pteronyssinus <0.10 kU/L; D002 - IgE D farinae <0.10 kU/L; E001 - IgE Cat Dander <0.10 kU/L; E005 - IgE Dog Dander <0.10 kU/L; E072-IgE Mouse Urine <0.10 kU/L; G002 IgE Bermuda Grass <0.10 kU/L; G006 - IgE Timothy Grass <0.10 kU/L; I006-IgE Cockroach, German <0.10 kU/L; Immunoglobulin E 4 kU/L (<OR=114); M001 IgE Penicillium chrysogen <0.10 kU/L; M002 - IgE Cladosporium herbar <0.10 kU/L; M003 - IgE Aspergillus fumigat <0.10 kU/L; M006 - IgE Alternaria alternat <0.10 kU/L; T001 IgE Maple/Box Elder <0.10 kU/L; T003 IgE Common Silver Birch <0.10 kU/L; T006 - IgE Cedar, Mountain <0.10 kU/L; T007 - IgE Oak, White <0.10 kU/L; T008 IgE Elm, American <0.10 kU/L; T010 - IgE Walnut <0.10 kU/L; T011 - IgE Maple Leaf Sycamore <0.10 kU/L; T014 - IgE Cottonwood <0.10 kU/L; T015 - IgE Ash, White <0.10 kU/L; T070 - IgE White Mulberry <0.10 kU/L; W001 - IgE Ragweed, Short <0.10 kU/L; W006 - IgE Mugwort <0.10 kU/L; W014 IgE Pigweed, Common <0.10 kU/L; W018 IgE Sheep Sorrel <0.10 kU/L
[2024-04-01 20:18] LABS: Angiotensin Converting Enzyme 70 U/L (9-67)
[2024-04-04 12:28] LABS: Cyclic Citrullinated Peptide <16 UNITS
[2024-04-05 15:33] LABS: Anti Nuclear Antibody Pattern Nuclear, Speckled; Anti Nuclear Antibody Screen POSITIVE (NEGATIVE)
[2024-04-08 15:44] LABS: Asperg fumigatus Precip Abs NEGATIVE (NEGATIVE); Micropoly faeni Abs NEGATIVE (NEGATIVE); Pigeon serum Abs NEGATIVE (NEGATIVE); Saccharo pora viridis Abs NEGATIVE (NEGATIVE); Thermo candidus Abs NEGATIVE (NEGATIVE); Thermoa vulgaris #1 NEGATIVE (NEGATIVE)
== END 2024-03-29 08:56 | disposition home or self-care (01) ==
LOC: HO.LAB 08:55
PROVIDERS: PCP Internal Medicine; Visit Provider Hospitalist
DX: J40 Bronchitis, not specified as acute or chronic (principal); J45.40 Moderate persistent asthma, uncomplicated; J98.4 Other disorders of lung; J69.0 Pneumonitis due to inhalation of food and vomit; J39.8 Other specified diseases of upper respiratory tract; G47.33 Obstructive sleep apnea (adult) (pediatric); G47.00 Insomnia, unspecified; F51.01 Primary insomnia; I51.7 Cardiomegaly; E04.9 Nontoxic goiter, unspecified; T78.40XA Allergy, unspecified, initial encounter; R91.1 Solitary pulmonary nodule; X58.XXXA Exposure to other specified factors, initial encounter; Y93.9 Activity, unspecified; Y92.9 Unspecified place or not applicable; Y99.9 Unspecified external cause status; Z99.89 Dependence on other enabling machines and devices
CPT/HCPCS: 36415; 80048; 82164; 82784; 82785; 85025; 85652; 86003; 86038; 86039; 86200; 86235; 86331; 86606; 86609; 94010; 99212

== ENCOUNTER 2024-03-29 08:55 | Outpatient (AMB) | payer OTHER, SELFPAY ==
--- NOTE | 2024-03-29 09:08 | MHC.OFFVIS ---
Vital Signs 03/29/24 09:11 Height 5 ft 1 in Weight 185 lb BMI 35.0 Pulse 83 Pulse Source Pulse Oximeter Pulse Oximetry (%) 97 Oxygen Delivery Method Room Air Intake Visit Reasons: Asthma/Sleep Study Follow Up [employer] Required: No Allergies leflunomide Allergy (Severe, Verified 03/29/24 09:08) Rash and Hives levofloxacin Allergy (Severe, Verified 03/29/24 09:08) Rash and Hives penicillin V Allergy (Severe, Verified 03/29/24 09:08) Rash and Hives Erythromycin Allergy (Severe, Uncoded 03/29/24 09:08) Rash and Hives Shrimp Allergy (Severe, Uncoded 03/29/24 09:08) Rash and Hives HPI Comments Details: The patient is a 68 y/o woman with a history of asthma and TENZIN on CPAP. Her asthma is in good controlled on her current respiratory medications. She has not taking inhaled corticosteroid at this time in seems to be doing okay without it which is reassuring. She does have a Combivent Respimat device that she uses twice a day with good effect. She is not interested inhaled cortical steroid at this time. She is concerned about her diabetes. In the meantime her CPAP therapy has been affecting beneficial. She does try to use it more than 4 hours a night. However, has been having some issues with her insurance company in her [employer] company which is getting bills and she is concerned because she is not getting any supplies at this time. In addition to that she is complaining of nasal congestion. She thinks she has allergies going on. Resulting a postnasal drip and cough. Has not had allergy testing. 04/12/2023 the patient is here for a pulmonary follow-up visit. She is complaining of worsening cough. She has been noticing when she goes outside specially around grass or any other allergen she can develop worsening cough and then she gets upset. She has been having some chest congestion. [id number] severity. She states that the last time she had that she had bronchitis. Otherwise she is using her respiratory therapy. It is partially helpful. On examination she does have some rhonchi and coarse breath sounds on the left base. Therefore will go ahead and start treating her for potential bacterial bronchitis. The patient also had blood work the back in March 2022 including a sedimentation rate which was elevated at 75. Prior to that was elevated up to the 90s. The patient will go and have blood work and also a chest x-ray when she is able. The if she she continues use her respiratory therapy as prescribed with good effect. 10/11/2023 the patient is here for a pulmonary follow-up visit. The patient continues to have some shortness breath with activity. She has been using her Symbicort with good effect. She also has a rescue inhaler that she uses less than 2 times week. She has been struggling with her daytime drowsiness. She does have a history sleep apnea although her last sleep study did not demonstrate any sleep apnea. She does have headaches in the morning and has witnessed apneic episodes and also snoring from her . He is very concerned with her untreated apnea this time. EPWORTH 08/20. The best way to further evaluate the symptoms would be with an in-lab sleep study. Will request 1 at this time specially since she failed a home sleep study. In addition to that she did have a chest x-ray done over the fall. I did personally review with the patient. It appears that her cardiac size is little bit bigger than normal and she also has a small murmur. Therefore will go ahead and request an echocardiogram. The patient will continue with current respiratory therapy and will follow-up in 3-4 months to review the results. 03/29/2024 the patient is here for a pulmonary follow-up visit. The patient has had an eventful several months. She developed significant worsening respiratory symptoms. She was evaluated in the ER where she had a CT scan of the chest. Demonstrated bibasilar airspace disease and pneumonitis. Likely aspiration pneumonia. She was treated effectively for that. The patient also given steroids. Her symptoms improved partially. Although she still having hard time with a cough and some shortness of breath. Still having hard time expectorating. Again, I personally reviewed the CT scan and also demonstrated a large thyroid goiter that was causing near complete obstruction of the trachea. Please refer to the pictures provided on the progress note. She also underwent spirometry. Seems to be have some plateauing of the inspiratory flows suggesting a component of an extrathoracic dynamic obstruction. In view of the findings I will go ahead and refer her to [facility] general surgery for evaluation for surgery for this extrinsic compression of the trachea from the thyroid. The patient also having significant daytime drowsiness. She does have an elevated Warner score of 11/24. She was supposed to undergo an in-lab sleep study but with everything going on she put that side. She needs to call make an appointment in order to in order to have that done. She continues use her respiratory therapy. In view of the findings on the CT scan also going to request she gets blood work. Patient returned to 3 months. If she has any worsening symptoms she will call for an earlier assessment. [facility] Medical History (Updated 03/30/24 @ 21:53 by Richard Vivas MD) Pneumonitis Extrinsic obstruction of trachea Thyroid goiter Allergies Aspiration pneumonitis Cardiomegaly Insomnia Asthma TENZIN (obstructive sleep apnea) Heart murmur HLD (hyperlipidemia) T2DM (type 2 diabetes mellitus) TENZIN on CPAP Asthma Obesity (BMI 30-39.9) Non-toxic multinodular goiter Dyslipidemia Hypertension longterm (current) use of insulin Vitamin D deficiency Diabetic nephropathy associated with type 2 diabetes mellitus Diabetes type 2, uncontrolled Surgical History Hx of wisdom tooth extraction Hx of eye surgery Hx of colonoscopy History of total abdominal hysterectomy and bilateral salpingo-oophorectomy Hx of tubal ligation History of appendectomy Family History Father Lung cancer Diabetes mellitus Mother Diabetes mellitus Pulmonary embolism Social History Household Members: Spouse Alcohol intake: never Patient Tobacco Use Status: Never used Tobacco Review of Systems Const Reports daytime sleepiness, Reports difficulty sleeping, Denies excessive sweating, Denies fatigue, Reports headache(s), Reports snoring, Denies weight gain and Denies weight loss Eyes Denies blurry vision and Denies diplopia ENT Denies change in voice, Denies dysphagia, Reports headache(s) and Denies hoarseness Card Denies chest pain, Denies irregular heart rhythm, Denies dyspnea and Reports other Resp Reports chest congestion, Reports cough, Denies dyspnea, Reports snoring and Reports wheezing GI Denies abdominal pain, Denies change in bowel habits, Denies dysphagia, Denies diarrhea and Denies nausea Musc Denies myalgias, Denies muscle cramps, Denies numbness and Denies tingling Skin/Breast Denies hirsutism and Denies alopecia Neuro Reports headache(s), Denies numbness and Denies tingling Psych Denies anxiety and Denies depression Endo Denies cold intolerance, Denies excessive sweating, Denies fatigue and Denies heat intolerance Leighton/Lymph Denies easy bruising Aller/Immun Reports wheezing Physical Exam Vital Signs: Last Vital Signs Pulse 83 03/29/24 09:11 Pulse Ox 97 03/29/24 09:11 Oxygen Delivery Method Room Air 03/29/24 09:11 BMI result Body Mass Index 35.0 Const General: alert Neck Neck: Yes normal visual inspection, Yes full ROM, Yes no lymphadenopathy and Yes supple Chest Chest palpation & inspection: normal inspection of the chest Resp Effort & Inspection: normal respiratory effort and no stridor Auscultation: diminished lung sounds Cardio Rate: regular rate Rhythm: regular rhythm Heart sounds: S1 normal heart sound present and S2 normal heart sound present GI Palpation (GI): Soft to palpation and nontender Auscultation: normal bowel sounds Skin General skin exam: rashes and/or lesions noted Office Procedures Spirometry Testing Spirometry Comments: Spirometry done in the office, Dr. Vivas has the results results scanned to her chart. 26034- Spirometry Results Reviewed Results Reviewed: Assessment & Plan Assessment & Plan (1) Asthma: Code(s): J45.909 - Unspecified asthma, uncomplicated Category: Medical Qualifiers: Asthma complication type: uncomplicated Asthma persistence: persistent Asthma severity: moderate Qualified Code(s): J45.40 - Moderate persistent asthma, uncomplicated (2) Insomnia: Code(s): G47.00 - Insomnia, unspecified Category: Medical Qualifiers: Insomnia type: primary Qualified Code(s): F51.01 - Primary insomnia (3) Cardiomegaly: Comment: on CXR Code(s): I51.7 - Cardiomegaly Category: Medical (4) TENZIN (obstructive sleep apnea): Comment: elevated EPWORTH 08/20 with 2 neg home PSG Code(s): G47.33 - Obstructive sleep apnea (adult) (pediatric) Category: Medical (5) Extrinsic obstruction of trachea: Code(s): J39.8 - Other specified diseases of upper respiratory tract Category: Medical (6) Thyroid goiter: Code(s): E04.9 - Nontoxic goiter, unspecified Category: Medical (7) Pneumonitis: Code(s): J98.4 - Other disorders of lung Category: Medical Plan continue Symbicort WILMA as needed continue astelin nasal spray In Lab PSG for persistent head time drowsiness and a previous h/o TENZIN. Home PSG have not been diagnostic Bloodwork/allergy testing referral to general surgery for a large thyroid goiter compressing the trachea F/U 3-4 months Orders: Orders Sjogren's Antibodies 03/29/24 J69.0 - Pneumonitis due to inhalation of food and vomit, T78.40XA - Allergy, unspecified, initial encounter KARELY Reflex Titer and Pattern 03/29/24 J69.0 - Pneumonitis due to inhalation of food and vomit, T78.40XA - Allergy, unspecified, initial encounter AMB Spirometry Testing 03/29/24 J45.40 - Moderate persistent asthma, uncomplicated Resp Allergy Profile Region I 03/29/24 J69.0 - Pneumonitis due to inhalation of food and vomit, R91.1 - Solitary pulmonary nodule, T78.40XA - Allergy, unspecified, initial encounter Cyclic Citrullinated Peptide 03/29/24 J69.0 - Pneumonitis due to inhalation of food and vomit, T78.40XA - Allergy, unspecified, initial encounter Complete Blood Count Auto Diff 03/29/24 J69.0 - Pneumonitis due to inhalation of food and vomit, T78.40XA - Allergy, unspecified, initial encounter Angiotensin Converting Enzyme 03/29/24 J69.0 - Pneumonitis due to inhalation of food and vomit, T78.40XA - Allergy, unspecified, initial encounter Hypersensitive Pneumonitis Prf 03/29/24 J69.0 - Pneumonitis due to inhalation of food and vomit, R91.8 - Other nonspecific abnormal finding of lung field, T78.40XA - Allergy, unspecified, initial encounter Immunoglobulin E 03/29/24 J69.0 - Pneumonitis due to inhalation of food and vomit, T78.40XA - Allergy, unspecified, initial encounter Immunoglobulin G Subclasses 03/29/24 J69.0 - Pneumonitis due to inhalation of food and vomit, T78.40XA - Allergy, unspecified, initial encounter Referrals General Surgery Referral E04.9 - Nontoxic goiter, unspecified, J39.8 - Other specified diseases of upper respiratory tract Coding Level of Care Code Est Pt Level 5 (68766) Diagnoses Moderate persistent asthma without complication J45.40 Asthma complication type: uncomplicated Asthma persistence: persistent Asthma severity: moderate Primary insomnia F51.01 Insomnia type: primary Cardiomegaly I51.7 TENZIN (obstructive sleep apnea) G47.33 Extrinsic obstruction of trachea J39.8 Thyroid goiter E04.9 Pneumonitis J98.4 CPT Codes Spirometry - CPT: 30896- Spirometry ([id number]) Time Spent (min) 40
[2024-03-29 09:11] VITALS: PULSE 83; O2SAT 97; BMI 35.0
== END 2024-03-29 09:57 | disposition home or self-care (01) ==
PROVIDERS: PCP Internal Medicine; Visit Provider Hospitalist
DX: J45.40 Moderate persistent asthma, uncomplicated (principal)
CPT/HCPCS: 94010; 99215

== ENCOUNTER 2024-08-17 14:15 | Outpatient (AMB) | payer OTHER, SELFPAY ==
[2024-08-17 14:21] VITALS: BP 130/54; PULSE 82; O2SAT 96; BMI 35.0
--- NOTE | 2024-08-17 14:21 | A.OFFVIS_ITS ---
Vital Signs 08/17/24 14:21 Height 5 ft 1 in Weight 185 lb 3.013 oz BMI 35.0 BP 130/54 L Blood Pressure Location Rt brachial Position Sitting Pulse 82 Pulse Source Pulse Oximeter Pulse Oximetry (%) 96 Oxygen Delivery Method Room Air Intake Visit Reasons: asthma Allergies leflunomide Allergy (Severe, Verified 08/17/24 14:25) Rash and Hives levofloxacin Allergy (Severe, Verified 08/17/24 14:25) Rash and Hives penicillin V Allergy (Severe, Verified 08/17/24 14:25) Rash and Hives Erythromycin Allergy (Severe, Uncoded 08/17/24 14:25) Rash and Hives Shrimp Allergy (Severe, Uncoded 08/17/24 14:25) Rash and Hives HPI Comments Details: The patient is a 69 y/o woman with a history of asthma and TENZIN on CPAP. Her asthma is in good controlled on her current respiratory medications. She has not taking inhaled corticosteroid at this time in seems to be doing okay without it which is reassuring. She does have a Combivent Respimat device that she uses twice a day with good effect. She is not interested inhaled cortical steroid at this time. She is concerned about her diabetes. In the meantime her CPAP therapy has been affecting beneficial. She does try to use it more than 4 hours a night. However, has been having some issues with her insurance company in her [employer] company which is getting bills and she is concerned because she is not getting any supplies at this time. In addition to that she is complaining of nasal congestion. She thinks she has allergies going on. Resulting a postnasal drip and cough. Has not had allergy testing. 04/12/2023 the patient is here for a pulmonary follow-up visit. She is complaining of worsening cough. She has been noticing when she goes outside specially around grass or any other allergen she can develop worsening cough and then she gets upset. She has been having some chest congestion. [id number] severity. She states that the last time she had that she had bronchitis. Otherwise she is using her respiratory therapy. It is partially helpful. On examination she does have some rhonchi and coarse breath sounds on the left base. Therefore will go ahead and start treating her for potential bacterial bronchitis. The patient also had blood work the back in March 2022 including a sedimentation rate which was elevated at 75. Prior to that was elevated up to the 90s. The patient will go and have blood work and also a chest x-ray when she is able. The if she she continues use her respiratory therapy as prescribed with good effect. 10/11/2023 the patient is here for a pulmonary follow-up visit. The patient continues to have some shortness breath with activity. She has been using her Symbicort with good effect. She also has a rescue inhaler that she uses less than 2 times week. She has been struggling with her daytime drowsiness. She does have a history sleep apnea although her last sleep study did not demonstrate any sleep apnea. She does have headaches in the morning and has witnessed apneic episodes and also snoring from her . He is very concerned with her untreated apnea this time. EPWORTH 08/20. The best way to further evaluate the symptoms would be with an in-lab sleep study. Will request 1 at this time specially since she failed a home sleep study. In addition to that she did have a chest x-ray done over the fall. I did personally review with the patient. It appears that her cardiac size is little bit bigger than normal and she also has a small murmur. Therefore will go ahead and request an echocardiogram. The patient will continue with current respiratory therapy and will follow-up in 3-4 months to review the results. 03/29/2024 the patient is here for a pulmonary follow-up visit. The patient has had an eventful several months. She developed significant worsening respiratory symptoms. She was evaluated in the ER where she had a CT scan of the chest. Demonstrated bibasilar airspace disease and pneumonitis. Likely aspiration pneumonia. She was treated effectively for that. The patient also given steroids. Her symptoms improved partially. Although she still having hard time with a cough and some shortness of breath. Still having hard time expectorating. Again, I personally reviewed the CT scan and also demonstrated a large thyroid goiter that was causing near complete obstruction of the trachea. Please refer to the pictures provided on the progress note. She also underwent spirometry. Seems to be have some plateauing of the inspiratory flows suggesting a component of an extrathoracic dynamic obstruction. In view of the findings I will go ahead and refer her to [facility] general surgery for evaluation for surgery for this extrinsic compression of the trachea from the th yroid. The patient also having significant daytime drowsiness. She does have an elevated Southlake score of 11/24. She was supposed to undergo an in-lab sleep study but with everything going on she put that side. She needs to call make an appointment in order to in order to have that done. She continues use her respiratory therapy. In view of the findings on the CT scan also going to request she gets blood work. Patient returned to 3 months. If she has any worsening symptoms she will call for an earlier assessment. 08/17/2024 The patient is here for pulmonary follow-up visit. Overall she is doing okay. Seems like she is doing better with her sleep. Her Southlake score is better 8/24. She did not have her sleep study. At this point will reassess after her thyroid surgery. She is having some difficulty swallowing now so is good that she is going to have the thyroid resection. We did review her last CT scan did demonstrate a small pulmonary nodule measuring 5 mm. She will re quire repeat CAT scan sometime in late spring early summer. She continues with respiratory therapy with good effect. At this point will continue current respiratory regimen will follow-up in 6-[address] scan to follow-up pulmonary nodule. At that point will reassess for underlying sleep apnea need for sleep study. [facility] Medical History (Updated 08/17/24 @ 20:32 by Richard Vivas MD) Pulmonary nodule Sjogren's disease Pneumonitis Extrinsic obstruction of trachea Thyroid goiter Allergies Aspiration pneumonitis Cardiomegaly Insomnia Asthma TENZIN (obstructive sleep apnea) Heart murmur HLD (hyperlipidemia) T2DM (type 2 diabetes mellitus) TENZIN on CPAP Asthma Obesity (BMI 30-39.9) Non-toxic multinodular goiter Dyslipidemia Hypertension snf (current) use of insulin Vitamin D deficiency Diabetic nephropathy associated with type 2 diabetes mellitus Diabetes type 2, uncontrolled Surgical History Hx of wisdom tooth extraction Hx of eye surgery Hx of colonoscopy History of total abdominal hysterectomy and bilateral salpingo-oophorectomy Hx of tubal ligation History of appendectomy Family History Father Lung cancer Diabetes mellitus Mother Diabetes mellitus Pulmonary embolism Social History Household Members: Spouse Alcohol intake: never Patient Tobacco Use Status: Never used Tobacco Review of Systems Const Reports daytime sleepiness, Reports difficulty sleeping, Denies excessive sweati ng, Denies fatigue, Reports headache(s), Reports snoring, Denies weight gain and Denies weight loss Eyes Denies blurry vision and Denies diplopia ENT Denies change in voice, Denies dysphagia, Reports headache(s) and Denies hoarseness Card Denies chest pain, Denies irregular heart rhythm, Denies dyspnea and Reports other Resp Reports chest congestion, Reports cough, Denies dyspnea, Reports snoring and Reports wheezing GI Denies abdominal pain, Denies change in bowel habits, Denies dysphagia, Denies diarrhea and Denies nausea Musc Denies myalgias, Denies muscle cramps, Denies numbness and Denies tingling Skin/Breast Denies hirsutism and Denies alopecia Neuro Reports headache(s), Denies numbness and Denies tingling Psych Denies anxiety and Denies depression Endo Denies cold intolerance, Denies excessive sweating, Denies fatigue and Denies heat intolerance Leighton/Lymph Denies easy bruising Aller/Immun Reports wheezing Physical Exam Vital Signs: Last Vital Signs Pulse 82 08/17/24 14:21 BP 130/54 L 08/17/24 14:21 Pulse Ox 96 08/17/24 14:21 Oxygen Delivery Method Room Air 08/17/24 14:21 BMI result Body Mass Index 35.0 Const General: alert Neck Neck: Yes normal visual inspection, Yes full ROM, Yes no lymphadenopathy and Yes supple Chest Chest palpation & inspection: normal inspection of the chest Resp Effort & Inspection: normal respiratory effort and no stridor Auscultation: diminished lung sounds Cardio Rate: regular rate Rhythm: regular rhythm Heart sounds: S1 normal heart sound present and S2 normal heart sound present GI Palpation (GI): Soft to palpation and nontender Auscultation: normal bowel sounds Skin General skin exam: rashes and/or lesions noted Assessment & Plan Assessment & Plan (1) Asthma: Code(s): J45.909 - Unspecified asthma, uncomplicated Category: Medical Qualifiers: Asthma severity: moderate Asthma persistence: persistent Asthma complication type: uncomplicated Qualified Code(s): J45.40 - Moderate persistent asthma, uncomplicated (2) Insomnia: Code(s): G47.00 - Insomnia, unspecified Category: Medical Qualifiers: Insomnia type: primary Qualified Code(s): F51.01 - Primary insomnia (3) Cardiomegaly: Comment: on CXR Code(s): I51.7 - Cardiomegaly Category: Medical (4) TENZIN (obstructive sleep apnea): Comment: elevated EPWORTH 11/24 with 2 neg home PSG Code(s): G47.33 - Obstructive sleep apnea (adult) (pediatric) Category: Medical (5) Extrinsic obstruction of trachea: Code(s): J39.8 - Other specified diseases of upper respiratory tract Category: Medical (6) Thyroid goiter: Code(s): E04.9 - Nontoxic goiter, unspecified Category: Medical (7) Pneumonitis: Code(s): J98.4 - Other disorders of lung Category: Medical (8) Pulmonary nodule: Code(s): R91.1 - Solitary pulmonary nodule Category: Medical Plan continue Symbicort WILMA as needed continue astelin nasal spray holding In Lab PSG for persistent head time drowsiness and a previous h/o TENZIN. Will reassess after her surgery CT chest Spring 2024 to f/u 5mm pulmonary nodule F/U 8 months Orders: Orders CT chest wo IV con 02/25/25 R91.1 - Solitary pulmonary nodule Coding Level of Care Code Est Pt Level 4 (59882) Complex EM visit Add On G2211 Diagnoses Moderate persistent asthma without complication J45.40 Asthma severity: moderate Asthma persistence: persistent Asthma complication type: uncomplicated Primary insomnia F51.01 Insomnia type: primary Cardiomegaly I51.7 TENZIN (obstructive sleep apnea) G47.33 Extrinsic obstruction of trachea J39.8 Thyroid goiter E04.9 Pneumonitis J98.4 Pulmonary nodule R91.1 Time Spent (min) 17
== END 2024-08-17 14:48 | disposition home or self-care (01) ==
PROVIDERS: PCP Internal Medicine; Visit Provider Hospitalist
DX: J45.40 Moderate persistent asthma, uncomplicated (principal); F51.01 Primary insomnia; I51.7 Cardiomegaly; G47.33 Obstructive sleep apnea (adult) (pediatric); J39.8 Other specified diseases of upper respiratory tract; E04.9 Nontoxic goiter, unspecified; J98.4 Other disorders of lung; R91.1 Solitary pulmonary nodule
CPT/HCPCS: 99214; G2211

== ENCOUNTER → 2024-08-17 14:15 | Outpatient (BNVA) | payer OTHER, SELFPAY | PROVIDERS: PCP Internal Medicine; Visit Provider Hospitalist | DX: J45.40 Moderate persistent asthma, uncomplicated (principal); J39.8 Other specified diseases of upper respiratory tract; J98.4 Other disorders of lung; R91.1 Solitary pulmonary nodule; G47.33 Obstructive sleep apnea (adult) (pediatric); F51.01 Primary insomnia; I51.7 Cardiomegaly; E04.9 Nontoxic goiter, unspecified; Z99.89 Dependence on other enabling machines and devices | CPT/HCPCS: 99212 ==

== ENCOUNTER 2025-04-16 16:23 | Outpatient (REF) | payer OTHER, SELFPAY ==
--- NOTE | ~2025-04-16 | CT_ITS ---
EXAMINATION: CT CHEST WITHOUT CONTRAST CLINICAL INFORMATION: Solitary pulmonary nodule COMPARISON: Chest x-ray May 04, 2023. DLP: 222 mGY*cm TECHNIQUE: Multidetector volumetric CT imaging of the chest was done. Axial MIP volume rendering provided. Sagittal and coronal reformatted images were obtained. This CT examination was performed using dose optimization techniques as appropriate, variously including the following: *Automated exposure control *Adjustment of mA and/or kV according to patient size (this includes techniques or standardized protocols for targeted exams where dose is matched to indication/reason for exam; i.e. extremities or head) *Use of iterative reconstruction technique FINDINGS: LUNGS: Right lung demonstrates peripheral groundglass and airspace opacities that are multiple patchy. There are also multifocal peripheral reticular densities. In the anterior right upper lobe, there is peribronchial thickening and mild bronchiectasis. Axial CT series #4, image 104/155: 5 x 7 mm solid pulmonary nodule is present in the anterior segment left lower lobe. Minimal coarse markings are present in the periphery of the left lung, more towards the apex. MEDIASTINUM: The mediastinum is normal. CORONARY ARTERY CALCIFICATION: Present PLEURA: There is no pleural effusion. No pleural mass or thickening. AXILLA: No lymphadenopathy. UPPER ABDOMEN: Renal cortical scarring is present in the posterior left kidney. OSSEOUS STRUCTURES: Bridging osteophytes and syndesmophytes are present in the anterior mid and lower thoracic spine. CT/CT chest wo IV con IMPRESSION: 5 x 7 mm left lower lobe solid pulmonary nodule. CT chest without contrast at 6-12 months, then optional CT at 18-24 months unless high risk, then second CT is also recommended. Per Fleischner Society recommendations. High risk patients includes those with a history of smoking, first-degree relative with lung cancer, or exposure to uranium, radon, or asbestos. Coarse peripheral lung markings in the right greater than left lung, and in the upper lungs more lower lungs could represent chronic interstitial disease such as UIP. Bridging osteophytes and syndesmophytes in the thoracic spine raises question of ankylosing spondylitis. Electronically signed by: Yonis Perea MD 04/16/2025 05:36 PM EDT
--- OUTSIDE RECORDS SUMMARY | 2025-04-16 16:26 | XMS_ITS | Clinical Summary ---
Author Organization [address] Address [address] [place] [phone] Phone Care Team Providers Care Clothing Pattern Preparer Name Role Phone Luis Carlos Dela Cruz MD Primary Care Provider + [phone] Allergies Active Allergy Reactions Criticality Noted Date Comments Erythromycin Lactobionate 11/04/2018 Leflunomide 11/04/2018 Levofloxacin 11/04/2018 Penicillins 11/04/2018 Shrimp GI intolerance 08/23/2024 reaction on testing Medications ASPIRIN ORAL Take 1 tablet by mouth 1 (one) time each day. Active syringe-needle, insulin,0.5 mL (BD INSULIN SYRINGE MISC) USE 1 SYRINGE THREE TIMES DAILY NEEDED IF NOT ON INSULIN PUMP 06/30/20 24 Active cinnamon bark (CINNAMON ORAL) Take 2,000 mg by mouth 2 (two) times a day. Active blood-glucose transmitter (DEXCOM G6 TRANSMITTER MISC) 1 Device by Not Applicable route every 3 (three) months. See Admin Instructions. Change transmitter every 3 months. 09/15/20 23 Active blood-glucose transmitter (DEXCOM G6 TRANSMITTER MISC) Use daily, change every 3 months 04/18/20 24 Active insulin pump cart,automated, BT (OMNIPOD 5 G6 PODS, GEN 5, SUBQ) 1 Device by Not Applicable route. See Admin Instructions. USE DIRECTED CHANGE EVERY 3 DAYS 04/18/20 24 Active NON FORMULARY by Not Applicable route. Active albuterol sulfate (ProAir RespiClick) 90 mcg/actuation aerosol powdr breath activated Inhale by mouth if needed. Active busPIRone (BUSPAR) 10 mg tablet Take 1 tablet (10 mg total) by mouth 2 (two) times a day. Active cholecalciferol (VITAMIN D-3) 50 mcg (2,000 unit) tablet Take 1 tablet (2,000 Units total) by mouth 1 (one) time each day. Active diclofenac (VOLTAREN) 1 % topical gel Apply 4 g topically 2 (two) times a day. 11/03/19 24 Active ferrous sulfate 325 mg (65 mg elemental iron) tablet Take 1 tablet (325 mg total) by mouth 3 (three) times a day. Active furosemide (LASIX) 20 mg tablet Take 1 tablet (20 mg total) by mouth 1 (one) time each day. Active Glucagon HCl, rDNA, (Glucagon Emergency Kit, human,) 1 mg injection INJECT NEEDED FOR LOW BLOOD SUGAR 12/06/19 24 Active golimumab (Simponi) 50 mg/0.5 mL pen injector injection Inject under the skin. every 30 days. Active losartan (COZAAR) 100 mg tablet Take 1 tablet (100 mg total) by mouth 1 (one) time each day. Active montelukast (SINGULAIR) 10 mg tablet Take 1 tablet (10 mg total) by mouth at bedtime. Active predniSONE (DELTASONE) 5 mg tablet Take 1 tablet (5 mg total) by mouth 1 (one) time each day. Active rosuvastatin (CRESTOR) 40 mg tablet Take 1 tablet (40 mg total) by mouth 1 (one) time each day. Active sertraline (ZOLOFT) 100 mg tablet Take 1 tablet (100 mg total) by mouth 1 (one) time each day. Active traMADoL (ULTRAM) 50 mg tablet Take 1 tablet (50 mg total) by mouth 3 (three) times a day if needed. Max Daily Amount: 150 mg Active insulin pump cart,auto,BT,G6 /7 (Omnipod 5 G6-G7 Pods, Gen 5,) cartridgeIndica tions:Diabetes mellitus type 2, with complication, on alf insulin pump (CMS/HCC V24, CMS/HCC V28) Change pods every 3 days 10 each 11 08/23/20 24 Active lancets (Accu-Chek Fastclix Lancet Drum) lancets Use to check BS 3 times a day 100 each 12 08/23/20 24 025 Active insulin lispro 100 unit/mL injection as directed daily. Use daily with insulin pump. Max daily dose 50 units. When not on insulin pump do sliding scale 3 times a day with meals per scale 100-150: 1 units; 151-200: 2 units; 201-250: 3 units; 251-300: 4 units; 301-350: 5 units, 351-400: 6 unitsInject 50 Units as directed 1 (one) time each day. as directed daily. Use daily with insulin pump. Max daily dose 50 units. When not on insulin pump do sliding scale 3 times a day with meals per scale 100-150: 1 units; 151-200: 2 units; 201-250: 3 units; 251-300: 4 units; 301-350: 5 units, 351-400: 6 units 30 mL 5 08/23/20 24 Active insulin glargine (Lantus Solostar U-100 Insulin) 100 unit/mL (3 mL) injection pen WHEN NOT ON INSULIN PUMP inject 20 Units SC 15 mL 5 08/23/20 24 Active dapagliflozin propanediol (FARXIGA) 10 mg tablet Take 1 tablet (10 mg total) by mouth 1 (one) time each day. 90 tablet 3 08/23/20 24 Active blood-glucose sensor (Dexcom G7 Sensor) deviceIndicatio ns:Diabetes mellitus type 2, with complication, on alf insulin pump [place] [place] [facility] [place] Change sensor every 10 days 3 each 11 09/12/20 24 Active BD Insulin Syringe Ultra-Fine 0.3 mL 30 gauge x 1/2 syringeIndicati ons:Diabetes mellitus type 2, with complication, on terminal block assembler insulin pump ([facility] V24, [facility] V28) USE 1 SYRINGE THREE TIMES DAILY NEEDED IF NOT ON ISNULIN PUMP 300 each 3 01/02/20 25 Active semaglutide (Ozempic) 1 mg/dose (4 mg/3 mL) injection penIndications: Diabetes mellitus type 2, with complication, on alf insulin pump [place] [place] [facility] [place]) INJECT 1 MG UNDER THE SKIN EVERY 7 DAYS 3 mL 5 02/07/20 25 Active glucose blood (OneTouch Ultra Test) test strip USE 1 STRIP TO CHECK GLUCOSE ONCE DAILY 100 each 5 04/06/20 25 Active blood sugar diagnostic (Contour Next Test Strips) test strip 3 times a day 100 each 12 08/23/20 24 025 Discontinued Active Problems Problem Noted Date Diagnosed Date Multinodular goiter 08/23/2024 Anxiety 09/17/2023 Diabetes mellitus type 2, wi th complication, on terminal block assembler insulin pump ([facility] [place] [facility] [place] 09/17/2023 Diverticulosis 09/17/2023 HTN (hypertension) 09/17/2023 Hyperlipemia 09/17/2023 RA (rheumatoid arthritis) ([facility] [place], [facility] [place] 09/17/2023 Murmur 07/30/2021 Overview (07/11/2024): Last Assessment & Plan: Patient has a very minimal left ventricular outflow tract murmur consistent with very mild aortic sclerosis with no significant stenosis Cardiac murmur 07/28/2021 Overview (07/11/2024): Last Assessment & Plan: Patient is a cardiac murmur that sounds as if it is just mild aortic sclerosis. We will send her for an echocardiogram to assess the severity of any of the valvular heart disease otherwise no changes in medical therapy at this time Asthma 11/04/2018 Chronic rheumatic arthritis ([facility] [place], [facility] V28) 11/04/2018 Overview (07/11/2024): Last Assessment & Plan: Patient complains of exquisite tenderness and does have exquisite tenderness on palpation of the scalp along the temporal artery on the left. She has a rheumatology appointment coming up this Wednesday asked her to talk to the antisqueak worker about this also possible that she could have polymyalgia rheumatica in the setting of both Sjogren's syndrome and rheumatic arthritis. She states that her prednisone was recently decreased which could have triggered an episode of breakthrough Sjogren's disease ([facility] [place] 11/04/2018 Thrombophlebitis 11/04/2018 Overview (07/11/2024): Last Assessment & Plan: Patient has lower extremity edema secondary to venous insufficiency. It is very well-managed at this time. No further intervention is required Immunizations Name Administration Dates Next Due Pfizer SARS-CoV-2 COVID-19, mRNA, LNP-S, preservative free 01/05/2021,12/15/2020 Medical History Medical History Date Comments Diabetes mellitus type 2, wi th complication, on alf insulin pump (CMS/HCC V24, CMS/HCC V28) 09/17/2023 DX:Diabetes mellitus type 2 , with complication, on terminal block assembler insulin pump ([facility]) Diverticulosis 09/17/2023 DX:Diverticulosi s HTN (hypertension) 09/17/2023 DX:HTN (hyper tension) Hyperlipemia 09/17/2023 DX:Hyperlipemia Multinodular goiter 08/23/2024 Social History Tobacco Use Types Packs/Day Years Used Date Smoking Tobacco: Former Cigarettes Q uit: 09/27/2009 Smokeless Tobacco: Never Tobacco Cessation:Counseling Given: Not Answered Alcohol Use Standard Drinks/Week Comments Not Currently 0 (1 standard drink = 0.6 oz pur e alcohol) Comments Unknown Sex and Gender Information Value Date Recorded Sex Assigned at Female 11/16/2023 8:05 AM EST Legal Sex Female 5:42 AM EST Gender Identity Female 11/16/2023 8:05 AM EST Sexual Orientation Not on file Obstetrics History Last Filed Vital Signs Vital Sign Reading Time Taken Comments Blood Pressure 124/60 11/30/2024 11:59 AM EST C Pulse 94 11/30/2024 11:59 AM EST Temperature 36.2 C (97.2 F) 11/30/2024 11:59 AM EST Respiratory Rate - - Oxygen Saturation 95% 11/30/2024 11:59 AM EST Inhaled Oxygen Concentration - - Weight 83.5 kg (184 lb) 11/30/2024 11:59 AM EST Height 154.9 cm (5' 1 ) 11/30/2024 11:59 AM EST Body Mass Index 34.77 11/30/2024 11:59 AM EST Plan of Treatment Health Maintenance Due Date Last Done Comments Breast Cancer Screening 1957 Diabetes: Annual Foot Exam 1967 Diabetes: Annual Retina Eye Exam 1967 RSV Immunization Adult Patients (1 - Risk 60-74 years 1-dose series) 2017 Colorectal Cancer Screening: Colonoscopy 08/30/2022 Falls Risk Assessment 08/30/2022 Hepatitis C Screening 08/30/2022 Medicare Annual Wellness Visit 08/30/2022 Osteoporosis Screening (Bone Density Screening) 08/30/2022 Social Influencers of Health Screening 08/30/2022 Depression Screening 09/27/2024 COVID-19 Vaccine (5 - Pfizer risk season) 2025 07/10/2024, 10/13/2022, 01/05/2021, Additional history exists Influenza Vaccine (#1) 2025 , 10/01/2022, 08/05/2021, Additional history exists Diabetes: Blood Sugar Control Test (HGBA1C) 06/02/2025 11/30/2024, 08/23/2024, 11/03/2023, Additional history exists Diabetes: Annual GFR (Glomerular Filtration Rate) 08/23/2025 08/23/2024, 01/21/2024 Hypertension/CHF/CAD Annual BMP Blood Test 08/23/2025 08/23/2024, 01/21/2024 Diabetes: Annual Urine Albumin-Creatinine Ratio (uACR) 08/25/2025 08/25/2024, 08/23/2024, 07/03/2024, Additional history exists Cholesterol Screening (Lipid Panel) 08/23/2029 08/23/2024, 10/22/2023 DTaP,Tdap,and Td Vaccines (4 - Td or Tdap) 03/22/2031 03/22/2021, 02/26/2014, 03/02/2008 MMR Vaccines Aged Out 04/18/2001 No longer eligi ble based on patient's age to complete this topic Zoster Vaccines Completed 03/13/2022, 03/28, 07/26/2013 Pneumococcal Vaccine: 50+ Years Completed 06/04/2022, 12/06/2019, 03/02/2008, Additional history exists HIB Vaccines Aged Out No longer eligi ble based on patient's age to complete this topic HPV Vaccines Aged Out No longer eligi ble based on patient's age to complete this topic Hepatitis A Vaccines Aged Out No long er eligible based on patient's age to complete this topic Hepatitis B Vaccines Aged Out No long er eligible based on patient's age to complete this topic IPV Vaccines Aged Out No longer eligi ble based on patient's age to complete this topic Meningococcal ACWY Vaccine Aged Out N o longer eligible based on patient's age to complete this topic Meningococcal B Vaccine Aged Out No l onger eligible based on patient's age to complete this topic RSV Immunization Patients Under 20 months Aged Out No longer eligible based on patient's age to complete this topic Varicella Vaccines Aged Out No longer eligible based on patient's age to complete this topic Procedures Procedure Name Priority Date/Time Associated Diagnosis Comments HEMOGLOBIN A1C Routine 11/30/2024 12:32 PM EST Multinodular goiter MICROALBUMIN CREATININE URINE RATIO Routine 08/23/2024 2:13 PM EST Diabetes mellitus type 2, with complication, on alf insulin pump ([facility] V24, [facility] V28) BASIC METABOLIC PANEL Routine 08/23/2024 2:13 PM EST Diabetes mellitus type 2, with complication, on terminal block assembler insulin pump (CMS/HCC V24, CMS/HCC V28) LIPID PANEL WITH REFLEX TO DIRECT LDL Routine 08/23/2024 2:13 PM EST Diabetes mellitus type 2, with complication, on alf insulin pump ([facility] V24, [facility] V28) from Last 3 Months or Most Recently Relevant to Health Maintenance Results * (ABNORMAL) Hemoglobin A1c (11/30/2024 12:32 PM EST) Hemoglobin A1C 6.7(H) <6.5 % LAB CHEMISTRY METHOD 11/30/2024 9:[address] [facility] Mean Bld Glu Estim. 146 mg/dL LAB CHEMISTRY METHOD 11/30/2024 9:[address] [facility] Blood Venous blood specimen / Unknown Venipuncture / Unknown 11/30/2024 12:32 PM EST 11/30/2024 12:32 PM EST Mirlande BRIAN LAB BLOOD ORDERABLES Final Result [facility] [address] [place] [address], [place] [phone] * Lipid panel with reflex to direct LDL (08/23/2024 2:13 PM EST) Cholesterol 175 0 - 200 mg/dL LAB CHEMISTRY METHOD 08/23/2024 6:[address] [facility] Triglycerides 95 0 - 150 mg/dL LAB CHEMISTRY METHOD 08/23/2024 6:[address] [facility] HDL 70 >=40 mg/dL LAB CHEMISTRY METHOD 08/23/2024 6:[address] [facility] LDL Calculated 86 0 - 100 mg/dL LAB CHEMISTRY METHOD 08/23/2024 6:[address] [facility] VLDL Cholesterol [place] 19 mg/dL LAB CHEMISTRY METHOD 08/23/2024 6:[address] [facility] Non HDL Chol. (LDL+VLDL) 105 <145 mg/dL LAB CHEMISTRY METHOD 08/23/2024 6:[address] [facility] Chol/HDL Ratio 2.5 0.0 - 4.4 LAB CHEMISTRY METHOD 08/23/2024 6:53 PM [facility] Blood Venous blood specimen / Unknown Venipuncture / Unknown 08/23/2024 2:13 PM EST 08/23/2024 2:13 PM EST Mirlande BRIAN LAB BLOOD ORDERABLES Final Result Performing Organization Address City/[facility]/ZIP Co de Phone Number [facility] [address] [place] [address], [place] [phone] * (ABNORMAL) Microalbumin creatinine urine ratio (08/23/2024 2:13 PM EST) Pathologist [facility] Creatinine, Urine 56.0 mg/dL LAB CHEMISTRY METHOD 08/23/2024 6:21 PM [facility] Microalb, Ur 2,120.0(H ) 0.0 - 29.0 mg/L LAB CHEMISTRY METHOD 08/23/2024 6:21 PM [facility] Comment:Results verified by repeat testing Microalb/Crea t Ratio 3,786(H) <30 mg/g creat LAB CHEMISTRY METHOD 08/23/2024 6:21 PM [facility] Urine Urine specimen from urethra / Unknown Non-blood Collection / Unknown 08/23/2024 2:13 PM EST 08/23/2024 2:13 PM EST us Mirlande BRIAN LAB URINE ORDERABLES Final Result [facility] [address] [place] [address], [place] [phone] * (ABNORMAL) Basic metabolic panel (08/23/2024 2:13 PM EST) [facility] [address] Sodium 139 133 - 145 mmol/L LAB CHEMISTRY METHOD 08/23/2024 6:51 PM [facility] Potassium 4.4 3.5 - 5.5 mmol/L LAB CHEMISTRY METHOD 08/23/2024 6:51 PM [facility] Chloride 108 96 - 110 mmol/L LAB CHEMISTRY METHOD 08/23/2024 6:51 PM [facility] CO2 23 21 - 32 mmol/L LAB CHEMISTRY METHOD 08/23/2024 6:51 PM [facility] Anion Gap 8 3 - 11 LAB CHEMISTRY METHOD 08/23/2024 6:51 PM [facility] Glucose 160(H) 70 - 100 mg/dL LAB CHEMISTRY METHOD 08/23/2024 6:51 PM [facility] BUN 49(H) 5 - 25 mg/dL LAB CHEMISTRY METHOD 08/23/2024 6:[address] [facility] Creatinine 2.29(H) 0.50 - 1.10 mg/dL LAB CHEMISTRY METHOD 08/23/2024 6:51 PM [facility] eGFR 23(L) >=60 mL/min/1. 73m2 LAB CHEMISTRY METHOD 08/23/2024 6:[address] [facility] Comment:Calculation based on the Chronic Kidney Disease Epidemiology Collaboration (CKD-EPI) equation refit without adjustment for race. BUN/Creatinine Ratio 21.4 LAB CHEMISTRY METHOD 08/23/2024 6:51 PM [facility] Calcium 9.0 8.5 - 10.5 mg/dL LAB CHEMISTRY METHOD 08/23/2024 6:51 PM [facility] Blood Venous blood specimen / Unknown Venipuncture / Unknown 08/23/2024 2:13 PM EST 08/23/2024 2:13 PM EST Mirlande BRIAN LAB BLOOD ORDERABLES Final Result [facility] [address] [place] [address], from Last 3 Months or Most Recently Relevant to Health Maintenance Insurance [facility] MEDICARE Member Subscriber Plan / Payer (Ef fective 2022-Present) Name:Oliva Blake Relation to Subscriber:Self Name:Oliva Blake Payer ID:[id number] Group ID:[id number] Type:Not on file Address: [address] [place] [phone] Advance Directives Documents on File Type Date Recorded Patient Fire Extinguisher Charger Expl anation Health Care Decision (hx) 08/10/2022 HE ALTH CARE PROXY Health Care Decision (hx) 08/10/2022 HE ALTH CARE PROXY Health Care Decision (hx) 08/10/2022 HE ALTH CARE PROXY Care Teams Clothing Pattern Preparer Relationship Specialty Start Date End Date Luis Carlos Dela Cruz MD [address] [place] [address] PCP - General Internal Medicine 06/06/21
--- OUTSIDE RECORDS SUMMARY | 2025-04-16 16:27 | XMS_ITS | Data Portability ---
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 I provided real-time medical direction for this encounter and was immediately available to provide additional phone-based assistance as needed. History as noted in EMR and by double bottom driver. I would add / emphasize: Patient seen for 4 to 5-day period of cough sore throat and fever. Overall reports she is feeling somewhat better today. Denying difficulty breathing or needing to use asthma medications more than usual. Denying chest pain dizziness or lightheadedness . Taking p.o. well. Lung sounds clear per report. AVSS well-appearing per report satting 96% on room air with no tachycardia or hypotension. Given near 5-day course of symptoms with overall improving symptoms and minimal pulmonary symptoms with normal respiratory status and oxygen saturation had shared decision making conversation regarding risks versus benefits of Paxlovid therapy and ultimately decided against treating with Paxlovid and monitoring symptoms at home. Red flags for need for ED presentation discussed. pallfather Not available 05/19/2024 18:47:08 Plan of Treatment Reminders Order Date Submit Date Provider Last Modified By Organization Details Last Modified Time Details Appointments None recorded. Lab rapid SARS CoV 2 Ag, QL IA, respiratory specimen 2023 [facility], [address] [place] [address], [id number] 20:17:34 rapid flu (A+B) 2023 [facility], [address] [place] [address], [id number] 4 20:19:26 Referral None recorded. Procedures None recorded. Surgeries None recorded. Imaging None recorded. Medication Orders None recorded. Patient TargetsNo targets recorded. Patient InstructionsNo instructions recorded. Reason for Referral None Reported. Results Created Date Observation Date Name Description Value Unit Range Abnormal Flag Note LastModifiedBy Organization Detail LastModifiedTime Result Notes None recorded. Medical Equipment None Reported. Allergies Allergen ID Allergen Name Allergen Category Reaction Reaction Severity Criticality Documentation Date Start Date Code Code System Note Provider Name and Address Organization Details Recorded Time 92 Product containin g penicilli n (product) medicatio n Not available Not available Not available 07/25/2024 [id number] SNOMED Not Available [employer] 4 03:52:13 9300 levofloxa edwar medicatio n Not available Not available Not available 07/25/2024 70766 RxNorm Not Available [employer] 4 03:52:13 Medications Name Sig Start Date Stop Date Status Note LastModified by Organization Details LastModified Time melatonin 10mg tab TAKE 1 TABLET BY MOUTH IN THE EVENING NEEDED active Not Available Not Available No t Available losartan 50 mg tablet TAKE 1 TABLET BY MOUTH ONCE DAILY active Not Available Not Available No t Available quetiapine 25 mg tablet TAKE 1 TO 2 TABLETS BY MOUTH ONCE DAILY AT NIGHT AT BEDTIME active Not Available Not Available No t Available buspirone 5 mg tablet TAKE 1 TABLET BY MOUTH THREE TIMES DAILY NEEDED active Not Available Not Available No t Available atorvastatin 80 mg tablet TAKE 1 TABLET BY MOUTH AT BEDTIME active Not Available Not Available No t Available prednisone 10 mg tablet TAKE 1 TABLET BY MOUTH ONCE DAILY active Not Available Not Available No t Available ipratropium 0.5 mg-albuterol 3 mg (2.5 mg base)/3 mL nebulization soln USE 1 AMPULE IN NEBULIZER 4 TIMES DAILY active Not Available Not Available Not Available tizanidine 2 mg tablet TAKE 1 TABLET BY MOUTH THREE TIMES DAILY NEEDED FOR HEADACHE active Not Available Not Available No t Available cetirizine 10 mg tablet TAKE 1 TABLET BY MOUTH ONCE DAILY FOR 90 DAYS active Not Available Not Available No t Available azithromycin 250 mg tablet TAKE 1 TABLET BY MOUTH ONCE DAILY FOR 4 DAYS active Not Available Not Available No t Available Glucagon Emergency Kit 1 mg solution for injection INJECT NEEDED FOR LOW BLOOD SUGAR active Not Available Not Available No t Available nystatin 100,000 unit/gram topical ointment APPLY OINTMENT TOPICALLY TO CORNERS OF THE MOUTH THREE TIMES DAILY FOR 7 DAYS active Not Available Not Available N ot Available benzonatate 200 mg capsule TAKE 1 CAPSULE BY MOUTH TWICE DAILY NEEDED FOR COUGH active Not Available Not Available No t Available prazosin 1 mg capsule TAKE 1 CAPSULE BY MOUTH AT BEDTIME active Not Available Not Available No t Available sucralfate 1 gram tablet TAKE 1 TABLET BY MOUTH THREE TIMES DAILY active Not Available Not Available Not Available sertraline 100 mg tablet TAKE 2 TABLETS BY MOUTH ONCE DAILY active Not Available Not Available No t Available Space Chamber USE DIRECTED active Not Available Not Available No t Available sulfamethoxa zole 800 mg-trimethop rim 160 mg tablet TAKE 1 TABLET BY MOUTH TWICE DAILY FOR 5 DAYS active Not Available Not Available No t Available quetiapine 100 mg tablet TAKE 1 TABLET BY MOUTH EVERY DAY AT BEDTIME active Not Available Not Available No t Available ketorolac 0.5 % eye drops INSTILL 1 DROP IN THE OPERATIVE EYE TWICE DAILY. START 2 DAYS PRIOR TO SURGERY. active Not Available Not Available Not Available OneTouch Ultra Test strips USE 1 STRIP TO CHECK GLUCOSE ONCE DAILY active Not Available Not Available N ot Available carboxymethy lcellulose sodium 0.5 % eye drops INSTILL 1 DROP INTO EACH EYE TWICE DAILY active Not Available Not Available Not Available benzonatate 100 mg capsule TAKE 1 CAPSULE BY MOUTH THREE TIMES DAILY NEEDED FOR COUGH FOR 7 DAYS active Not Available Not Available N ot Available prednisone 2.5 mg tablet TAKE 1 TABLET BY MOUTH ONCE DAILY active Not Available Not Available No t Available prednisone 50 mg tablet TAKE 1 TABLET BY MOUTH ONCE DAILY FOR 4 DAYS active Not Available Not Available No t Available omeprazole 20 mg capsule,katerina yed release TAKE 1 CAPSULE BY MOUTH ONCE DAILY active Not Available Not Available No t Available diclofenac sodium 75 mg tablet,delay ed release TAKE 1 TABLET BY MOUTH TWICE DAILY WITH FOOD NEEDED FOR PAIN active Not Available Not Available No t Available montelukast 10 mg tablet TAKE 1 TABLET BY MOUTH AT BEDTIME active Not Available Not Available No t Available furosemide 20 mg tablet TAKE 1 TABLET BY MOUTH ONCE DAILY active Not Available Not Available No t Available Novolog U-100 Insulin aspart 100 unit/mL subcutaneous solution USE UP TO 100 UNITS DAILY VIA INSULIN PUMP SUBCUTANEOU SLY DIRECTED FOR 30 DAYS active Not Available Not Available Not Available insulin lispro (U-100) 100 unit/mL subcutaneous solution USE DAILY WITH INSULIN PUMP DIRECTED. MAX DAILY DOSE 50 UNITS. WHEN NOT ON PUMP, DO SLIDING SCALE THREE TIMES DAILY WITH MEALS: 100-150: 1 UNIT; 151-200: 2 UNITS; 201-250: 3 UNITS; 251-300: 4 UNITS; 301-350: 5 UNITS; 351-400: 6 UNITS active Not Available Not Available No t Available albuterol sulfate HFA 90 mcg/actuatio n aerosol inhaler INHALE 2 PUFFS BY MOUTH EVERY 6 HOURS NEEDED FOR SHORTNESS OF BREATH AND FOR WHEEZING active Not Available Not Available No t Available ondansetron 4 mg disintegrati ng tablet DISSOLVE 1 TABLET IN MOUTH EVERY 8 HOURS NEEDED FOR NAUSEA active Not Available Not Available No t Available losartan 100 mg tablet TAKE 1 TABLET BY MOUTH ONCE DAILY active Not Available Not Available No t Available fluticasone propionate 50 mcg/actuatio n nasal spray,suspen devonte USE 1 SPRAY(S) IN EACH NOSTRIL TWICE DAILY MAY DECREASE TO ONCE A DAY active Not Available Not Available N ot Available doxycycline hyclate 100 mg tablet TAKE 1 TABLET BY MOUTH EVERY 12 HOURS FOR 7 DAYS active Not Available Not Available N ot Available ezetimibe 10 mg tablet TAKE 1 TABLET BY MOUTH ONCE DAILY active Not Available Not Available No t Available cyclobenzapr ine 5 mg tablet TAKE 1 TABLET BY MOUTH THREE TIMES DAILY FOR 7 DAYS active Not Available Not Available N ot Available BD Insulin Syringe Ultra-Fine 0.3 mL 30 gauge x 1/2 USE 1 SYRINGE THREE TIMES DAILY NEEDED IF NOT ON INSULIN PUMP active Not Available Not Available No t Available Lantus Solostar U-100 Insulin 100 unit/mL (3 mL) subcutaneous pen INJECT 20 UNITS SUBCUTANEOU SLY ONCE DAILY DIRECTED WHEN NOT ON INSULIN PUMP active Not Available Not Available No t Available cholecalcife rol (vitamin D3) 50 mcg (2,000 unit) capsule TAKE 1 CAPSULE BY MOUTH ONCE DAILY active Not Available Not Available No t Available Simponi 50 mg/0.5 mL subcutaneous pen injector active Not Available Not Available Not Available melatonin 10 mg tablet active Not Available Not Available No t Available Farxiga 10 mg tablet TAKE 1 TABLET BY MOUTH ONCE DAILY active Not Available Not Available No t Available Veltassa 8.4 gram oral powder packet TAKE 1 PACKET BY MOUTH IN THE MORNING DIRECTED active Not Available Not Available Not Available Dexcom G6 Sensor device USE DIRECTED PLACE NEW SENSOR EVERY 10 DAYS active Not Available Not Available No t Available Dexcom G6 Transmitter device USE DIRECTED CHANGE TRANSMITTER EVERY 3 MONTHS active Not Available Not Available No t Available BinaxNOW COVID-19 Ag Self Test kit Use as Directed on the Package active Not Available Not Available Not Available Omnipod 5 G6 Pods (Gen 5) subcutaneous cartridge USE DIRECTED CHANGE EVERY 3 DAYS active Not Available Not Available No t Available Ozempic 0.25 mg or 0.5 mg (2 mg/3 mL) subcutaneous pen injector INJECT 0.5MG SUBCUTANEOU SLY ONCE EVERY WEEK FOR 4 WEEKS. START THIS IF PATIENT REQUESTS AN INCREASE AFTER AT LEAST 1 MONTH AT THE 0.25MG DOSE active Not Available Not Available No t Available Breyna 80 mcg-4.5 mcg/actuatio n HFA aerosol inhaler INHALE 2 PUFFS BY MOUTH TWICE DAILY active Not Available Not Available No t Available Vitals None Recorded Social History None recorded. Functional Status None recorded. Mental Status None recorded. Family History Nothing Reported. Medical History No medical history recorded. Gynecological HistoryNo gynecological history recorded. Obstetrics History GPAL:G 0 P 0 0 0 0 Past Encounters Encounter ID Performer Location Encounter Start Date Encounter Closed Date Diagnosis/Indication Diagnosis SNOMED-CT Code Diagnosis ICD10 Code Diagnosis Note [id number] Gurpreet Zacarias MD Main - [address] [phone] 05/19/2024 11:25:23 05/19/2024 20:24:11 COVID-19 709814885 U07.1 Health Concerns Section Related Observation LastModified by Organization Detai ls LastModified Time None Recorded Concern Status LastModified by Organization Details LastModified Time None Recorded Advance Directives Directive None Recorded Payers Insurance Date Sequence Insurance Name Policy Number Policy Graham Covered Member ID Graham Member ID Guarantor Name 05/19/[address] [facility] [place] [place] - DOS ON OR AFTER 2022 - DUAL ELIGIBLE - CUSTODIAL OPTIONS AND ONE CARE (MEDICARE REPLACEMENT/ADV ANTAGE - HMO) Oliva Wood [id number] Oliva Wood Notes Date Note Type Note Provider Name and Address Organization Details Recorded Time 05/19/2024 text/html HPI: Sathya from [facility] calling in to place a referral, member identified via name and . PMHx asthma, HTN, DM. ALLERGIES- levaquin, PCN, erythromycin and leflunomde. Member with a 4 day history of cough, sore throat, fever and mild sob. Members temp was 103. yesterday, she has not yet taken this morning per nurse. Per nurse member was in NAD, speaking in full and complete sentences. Member denies chest pain, no chills, no headache or dizziness, no sick contacts. Member has been taking tylenol cold and flu as well her nebs and inhalers. Member would like to be evaluated. .................... .................... .................... .................... .................... .................... .................... . [facility] Nurse Triage Notes (Sherry Leon): Chief Complaints: ENT, Cough, Fever/Chills PMH: COPD/Asthma, Diabetes, Hypertension Allergies: Penicillin, Levofloxacin Other Allergies: erythromycin, leflunomide Comments: [facility] RN did not require any additional information to process this visit. Salon Shampoo Assistant Organization Information for [employer] Business Legal Name: [facility] Address: [address] [place] [address], [place] [address], Skating Rink Manager: Jorgito Newman MD CLIA No.: [id number] Salon Shampoo Assistant POC Test Results from [facility] [employer] Rapid influenza antigen (11:13:43) Flu: - Rapid COVID antigen (11:13:44) COVID: + Attachments uploaded as part of this test result can be found under Documents section. .................... .................... .................... .................... .................... .................... .................... . Salon Shampoo Assistant Note From [facility]: Alert and oriented, standing in kitchen. Patient complains of sore throat, running nose, nasal congestion, sinus pressure, day 4. Patient denies coughing, nausea, vomiting, diarrhea, weakness, difficulty breathing or need to use her inhaler more than normal. Patient denies chest pain or any other pain or complaints. Patient reports normal intake and elimination, no change in appetite. No G.I. symptoms reported. Retreat warm and dry secondary exam unremarkable. Lung sounds clear in all bright negative increased work of breathing positive. Full sentences.Patient states her symptoms have been improving. [facility] discusses paxlovid, patient and [facility] decide against it. Supportive care, red flags, and patient education discussed. Quarantine and next steps discussed. Patient demonstrates understanding of care and plan. Salon Shampoo Assistant Allergies: Penicillin, Levofloxacin .................... .................... .................... .................... .................... .................... .................... . Disposition: Fulfilled Gurpreet Zacarias MD [address] [facility],[address], [place], [phone], [employer] 05/19/2024 18:48:07 OBGyn Episode No OBEpisode recorded.
--- OUTSIDE RECORDS SUMMARY | 2025-04-16 16:27 | XMS_ITS | Clinical Summary ---
Author Organization [facility] Address [address] [place] [phone] Phone Care Team Providers Care Financial Services Counselor Name Role Phone Luis Carlos Dela Cruz MD Primary Care Provider [phone] Allergies Active Allergy Reactions Criticality Noted Date Comments Erythromycin Rash Low 12/14/2020 Leflunomide Other (see comments) 12/14/2020 Levofloxacin Other (see comments) 12/14/2020 Penicillins Rash Low 12/14/2020 Medications ASPIRIN 81 PO Take 1 tablet by mouth 1 (one) time each day Active albuterol HFA (PROVENTIL HFA;VENTOLIN HFA) 108 (90 Base) MCG/ACT inhaler 2 puffs by Other route every 4 (four) hours Active ferrous sulfate 325 (65 Fe) MG EC tablet Take 1 tablet by mouth 3 (three) times a day Active ipratropium-alb uterol (DUO-NEB) 0.5-2.5 mg/3 mL nebulizer solution Take 2 puffs by mouth 4 (four) times a day Active montelukast (SINGULAIR) 10 MG tablet Take 1 tablet by mouth 1 (one) time each day Active omeprazole (PriLOSEC) [address] capsule Take 1 capsule by mouth 1 (one) time each day Active predniSONE (DELTASONE) 1 MG tablet Take 5 mg by mouth 1 (one) time each day 11/26/19 21 Active Ozempic, 1 MG/DOSE, 2 MG/1.5ML solution pen-injector INJECT 1MG SUBCUTANEOUSLY ONCE A WEEK 11/11/19 21 Active insulin aspart (NovoLOG) 100 UNIT/ML patient supplied pump Inject under the skin continuously Active Golimumab (Simponi Aria) 50 MG/4ML solution injection Infuse into a venous catheter Active sertraline (ZOLOFT) 100 MG tablet Take 200 mg by mouth 1 (one) time each day Active Cinnamon 500 MG tablet Take 200 mg by mouth in the morning and 200 mg in the evening. Active Dapagliflozin Propanediol (Farxiga) 10 MG tabletIndicatio ns:Stage 3b chronic kidney disease (HCC) Take 10 mg by mouth 1 (one) time each day 90 tablet 3 03/28/20 24 Active Patiromer Sorbitex Calcium (Veltassa) 8.4 g pack Take 8.4 g by mouth 1 (one) time each day Active Cholecalciferol (Vitamin D) 50 MCG (2000 UT) capsuleIndicati ons:Stage 3b chronic kidney disease (HCC),Vitamin D deficiency, not otherwise specified Take 2 tablets by mouth 1 (one) time each day 180 capsule 3 08/30/20 24 025 Active furosemide (LASIX) 20 MG tabletIndicatio ns:Stage 3b chronic kidney disease (HCC),Hyperkale jane Take 1 tablet (20 mg total) by mouth every other day 48 tablet 3 08/30/20 24 Active atorvastatin (LIPITOR) 80 MG tablet Take 80 mg by mouth 1 (one) time each day Active losartan (COZAAR) 50 MG tabletIndicatio ns:Stage 3b chronic kidney disease (HCC),Proteinur ia, not otherwise specified Take 1.5 tablets (75 mg total) by mouth 1 (one) time each day 135 tablet 3 11/29/19 25 026 Active Active Problems Problem Noted Date Diagnosed Date Vitamin D deficiency, not otherwise specified Overview (11/28/2024): Vitamin D 25 remains low at 25 from 29 C/w Vitamin D 3 4,000 units daily Monitor level annually Assessment & Plan (08/30/2024 8:55 PM EST): Vitamin D 25 remains low at 25 from 29 Increase Vitamin D 3 from 2,000 units to 4,000 units daily Monitor level annually Assessment & Plan (07/13/2024 11:12 PM EDT): On daily Vitamin D supplementation Monitor level annually Anemia in chronic kidney disease 12/28/2023 Overview (11/28/2024): Hgb within target Normal iron studies on supplementation Target Hgb 10-12 Will initial Epo replacement therapy when Hgb falls <10 Monitor iron studies Assessment & Plan (08/30/2024 8:53 PM EST): Hgb within target Normal iron studies on supplementation Will continue to monitor Assessment & Plan (07/13/2024 11:20 PM EDT): Hgb at target Iron studies WNL On iron supplementation Assessment & Plan (03/28/2024 10:48 PM EDT): Hgb 11.0 as of 12/2023 Normal Lytes Assessment & Plan (12/28/2023 4:03 PM EDT): Hgb 11.0, within target 10-12 Taking oral iron - iron studies adequate as of 6 months ago Will continue to monitor Secondary hyperparathyroidism of renal origin Overview (11/28/2024): PTH level at target <150 Normal Ca/Phos level Not on Calcitriol Will monitor iPTH/Ca/PO4 q6 months Assessment & Plan (08/30/2024 9:01 PM EST): PTH level at target <150 Normal Ca/Phos level Not on Calcitriol Assessment & Plan (07/13/2024 11:28 PM EDT): PTH level remains above normal, 121 recently Calcium level just below target at 8.6, normal Phos Target PTH <150 Consider starting Calcitriol 0.25 mcg QOD if PTH >150 Assessment & Plan (12/28/2023 4:12 PM EDT): iPTH elevated at 109, was up a bit more at 116 a year ago Target iPTH for current CKD Stage 3b/4 is <110 Calcium normal at 8.8, but trending down from 9.4 a year ago Phosphorous level is up to 4.4 from 3.6 a year ago Will continue to monitor need for Calcitriol 0.25 mcg QD Hyperkalemia 12/24/2021 Overview (11/28/2024): K level remains WNL on Veltassa Continue low K diet Cont to monitor Assessment & Plan (08/30/2024 8:52 PM EST): K level remains WNL on Veltassa Continue low K diet Cont to monitor Assessment & Plan (07/13/2024 11:18 PM EDT): K level now WNL c/w Veltassa 8.4 mg once daily Follow low K diet Continue to monitor Assessment & Plan (03/28/2024 10:58 PM EDT): Potassium improved to 5.0 Follow low K diet On lower Losartan 50 mg QD dose Will follow K level Assessment & Plan (12/28/2023 4:08 PM EDT): Cont to hold Losartan 100 mg QD for now and follow low K diet Continue Veltassa supp Rechecking BMP FERNANDO Cardiovascular stress test abnormal 12/15/2021 Diverticulosis of sigmoid colon 12/15/2021 Goiter 12/15/2021 Mixed anxiety and depressive disorder 12/15/2021 Obese class II 12/15/2021 Seropositive rheumatoid arthritis 12/15/2021 Cardiac murmur 07/28/2021 Overview (12/15/2021): Last Assessment & Plan: Patient is a cardiac murmur that sounds as if it is just mild aortic sclerosis. We will send her for an echocardiogram to assess the severity of any of the valvular heart disease otherwise no changes in medical therapy at this time Proteinuria, not otherwise specified 12/16/2020 Overview (07/13/2024): Diabetic Nephropathy related Maintain good DM and BP control On Losartan and Farxiga Assessment & Plan (08/30/2024 8:57 PM EST): Urine alb/creat ratio improved from 4.3 g to 3 g recently On Losartan and Farxiga Assessment & Plan (07/13/2024 11:24 PM EDT): Urine alb/creat ratio elevated at 4 gm as of 06/2024 Urine prot/creat ratio elevated at 5 gm as of 12/2023 Plan is to Increase Losartan 50 mg to 100 mg QD and monitor Scr and K levels Assessment & Plan (03/28/2024 10:55 PM EDT): Urine prot/creat ratio 5,463 as of 01/21/24 On Farxiga 10 mg QD and lower dose Losartan 50 mg QD Will recheck this Assessment & Plan (12/28/2023 4:09 PM EDT): Will resume Losartan (was 100 mg QD) even if a lower dose once K level is re-evaluated Stage 3b chronic kidney disease 12/14/2020 Overview (11/28/2024): Related to Diabetic Nephropathy Improved Creat 1.7 from 2.0, GFR 31 Normal Lytes On reduced Losartan 75 mg QD dose Avoid Nephrotoxins Monitor Renal panel, urine prot/creat ratio Q6 months On Farxiga Optimize DM and BP control No Renal imaging on file - referred for Renal US Assessment & Plan (08/30/2024 8:44 PM EST): Creat worsened from 1.5 to 2.0 Normal Lytes Reduce Losartan from 100 mg to 75 mg Reduce Furosemide from 20 mg QD to QOD Recheck BMP in 1 week Assessment & Plan (07/13/2024 11:13 PM EDT): Stable Creatinine Normal Lytes Assessment & Plan (03/28/2024 10:56 PM EDT): Stable Creat 1.74, eGFR 32 Normal Lytes On Farxiga 10 mg QD On lower dose Losartan 50 mg QD d/t hyperkalemia Assessment & Plan (12/28/2023 4:07 PM EDT): Stable Creat 1.8, eGFR 30 With gross proteinuria ARB on hold for now due to high K On Farxiga 10 mg QD Diabetes mellitus 12/14/2020 Hypertension 12/14/2020 Overview (11/28/2024): Blood pressure pressure is well controlled Encourage home BP checks, record and bring in readings to next visit No Edema On Losartan 75 mg QD and Furosemide 20 mg QOD Consider adding Amlodipine if home BPs remain elevated Follow low NA diet Avoid NSAIDs/Decongestant medications Increase activity for healthy BMI Target BP <120/80 Assessment & Plan (08/30/2024 8:51 PM EST): Blood pressure mildly elevated today, patient is anxious about renal function Encourage home BP checks, record and bring in readings to next visit No Edema Reduce Losartan from 100 mg to 75 mg QD and reduce Furosemide 20 mg from QD to QOD d/t rising Creat 2.0 Consider adding Amlodipine if home BPs are elevated Assessment & Plan (07/13/2024 11:18 PM EDT): Blood pressure is above target in office today On Losartan 50 mg QD and Furosemide 20 mg QD No Edema No medication changes made today Assessment & Plan (03/28/2024 10:44 PM EDT): Blood pressure is well controlled Taking Losartan 25 mg QD and Diltiazem 320 mg QD No Edema Continue current med regimen Assessment & Plan (12/28/2023 4:05 PM EDT): Blood pressure above target a bit systolically - 130/58 Currently off Losartan 100 mg QD d/t high K Taking Furosemide 20 mg QD for second agent/Edema No Edema observed today Lifestyle modifications as above Hyperlipidemia 12/14/2020 Asthma 11/04/2018 Rheumatoid arthritis 11/04/2018 Overview (12/15/2021): Last Assessment & Plan: Patient complains of exquisite tenderness and does have exquisite tenderness on palpation of the scalp along the temporal artery on the left. She has a rheumatology appointment coming up this Wednesday asked her to talk to the linotypist about this also possible that she could have polymyalgia rheumatica in the setting of both Sjogren's syndrome and rheumatic arthritis. She states that her prednisone was recently decreased which could have triggered an episode of breakthrough Sj gren's syndrome 11/04/2018 Thrombophlebitis 11/04/2018 Immunizations Immunization Administration Dates Next Due Influenza Split High Dose Pr eservative Free IM 07/06/2018 Influenza Whole 06/24/2020, 3,07/02/2009,07/10,08/25/2007,08/18/2006 MMR 04/18/2001 Pfizer SARS-COV-2 01/05/2021,12/15/2020 Pneumococcal Polysaccharide 12/06/2019,0 03/02/2008,09/29/2006,04/09 Shingrix 04/24/2020 Td, Unspecified 03/22/2021,03/02/2008 Tdap 02/26/2014 Zoster 07/26/2013 Family History Medical History Relation Comments Diabetes Child Cancer Father throat Diabetes Father Diabetes Mother Diabetes Sibling 1 Heart disease Sibling 2 sister Cancer Sibling 3 sisterx2 lung, c olon, brain Relation Status Comments Child Father Mother Sibling 1 Sibling 2 Sibling 3 Social History Tobacco Use Types Packs/Day Years Used Date Smoking Tobacco: Former Cigarettes Q uit: 01/28/2009 Smokeless Tobacco: Never Tobacco Cessation:Counseling Given: Not Answered Comments:Smoking History Info:Every day Alcohol Use Standard Drinks/Week Comments No 0 (1 standard drink = 0.6 oz pur e alcohol) Comments Unknown Sex and Gender Information Value Date Recorded Sex Assigned at Not on file Legal Sex Female 4:50 PM EST Gender Identity Not on file Sexual Orientation Not on file Last Filed Vital Signs Vital Sign Reading Time Taken Comments Blood Pressure 120/60 11/28/2024 2:46 PM EST Pulse 74 11/28/2024 2:46 PM EST Temperature - - Respiratory Rate - - Oxygen Saturation 94% 08/30/2024 9:33 AM EST Inhaled Oxygen Concentration - - Weight 82.6 kg (182 lb) 11/28/2024 2:46 PM EST Height 152.4 cm (5') 12/15/2021 2:21 PM EDT Body Mass Index 35.54 12/15/2021 2:21 PM EDT Plan of Treatment Upcoming Encounters Date Type Department Care Team (Latest Contact Info) Description 04/27/2025 Orders Only [facility] [address] [phone] Eugenia Emery ARNP [address] [phone] Stage 3b chronic kidney disease (HCC); Hypertension; Hyperkalemia; Proteinuria, not otherwise specified; Secondary hyperparathyroidism of renal origin (HCC); Vitamin D deficiency, not otherwise specified; Anemia in chronic kidney disease 05/31/2025 11:30 AM EDT Office Visit [facility] [address] [phone] Eugenia Emery ARNP [address] [phone] Health Maintenance Due Date Last Done Comments Breast Cancer Screening 1957 Colorectal Cancer Screening: Annual FOBT 2006 Colorectal Cancer Screening: Colonoscopy 2006 Colorectal Cancer Screening: Sigmoidoscopy 2006 Diabetes: Ophthalmology Exam 10/28/2020 Diabetes: Pedal Pulse Checked 10/28/2020 Diabetes: Sensory Foot Exam 10/28/2020 Diabetes: Visual Foot Exam 10/28/2020 Pneumococcal Vaccine: 50+ Years (3 of 3 - PCV) 12/05/2020 12/06/2019, 03/02/2008, 09/29/2006, Additional history exists Diabetes: Hemoglobin A1C 03/02/2025 025, 08/23/2024, 11/03/2023, Additional history exists Influenza Vaccine (#1) 2025 0, 07/06/2018, 06/28/2013, Additional history exists Pneumococcal Vaccine: Peds (0 to 5 Years) and At-Risk Patients (6 to 49 Years) Discontinued 12/06/2019, 03/02/2008, 09/29/2006, Additional history exists Hepatitis B Vaccine Aged Out No longe r eligible based on patient's age to complete this topic Procedures Procedure Name Priority Date/Time Associated Diagnosis Comments HEMOGLOBIN A1C Routine 01/13/2023 10:35 AM EDT Hyperkalemia Stage 3b chronic kidney disease (HCC) Type 2 diabetes mellitus with diabetic chronic kidney disease (HCC) from Last 3 Months or Most Recently Relevant to Health Maintenance Results * (ABNORMAL) Hemoglobin A1c (01/13/2023 10:35 AM EDT) Hemoglobin A1C 6.6(H) (4.0-5.6) % [facility] Comment: MONITORING: In known diabetic patients, hemoglobin A1c targets should be discussed with health care provider. DIAGNOSTIC USE: The [place] Diabetes Association (ADA) and the World Health Organization (WHO) recommend the use of HbA1c to diagnose diabetes using a threshold of 6.5%. Patients who have an HbA1c between 5.7% and 6.4% are considered at increased risk for developing diabetes in the future. CAUTION: Falsely low HbA1c results may be observed in patients with hemolytic anemia, homozygous forms of abnormal hemoglobin (e.g. SS, CC, SC), , recent blood loss or hemoglobin F greater than 7%. Fructosamine may be used as an alternate test in these cases. REFERENCE: ADA: Standards of Medical Care in Diabetes 2020, The Journal of Clinical and Applied Research and Education Volume 43, Supplement 1 Testing performed or reported by [facility], a Service of [facility], [address] [place] [address] Carmelina Martinez MD, Russian History Professor [facility]# [id number] Blood specimen (specimen) Venous blood / Unknown 01/13/2023 10:35 AM EDT 01/13/2023 10:38 AM EDT Navin Rodriguez MD LAB BLOOD ORDERABLES Final Re sult [facility] from Last 3 Months or Most Recently Relevant to Health Maintenance Insurance [facility] ([id number]) [facility] ([id number]) Care Teams Financial Services Counselor Relationship Specialty Start Date End Date Luis Carlos Dela Cruz MD [address] [place] [address] PCP - General Internal Medicine 12/28/23
== END 2025-04-16 16:24 | disposition home or self-care (01) ==
LOC: HO.CT 16:23
PROVIDERS: PCP Internal Medicine; Visit Provider Hospitalist
DX: R91.1 Solitary pulmonary nodule (principal)
CPT/HCPCS: 71250

== ENCOUNTER → 2025-04-16 16:30 | Outpatient (BNV) | payer OTHER, SELFPAY | PROVIDERS: PCP Internal Medicine; Visit Provider Radiology Diagnostic Radiology | DX: R91.1 Solitary pulmonary nodule (principal); R91.8 Other nonspecific abnormal finding of lung field; M25.78 Osteophyte, vertebrae | CPT/HCPCS: 71250 ==

== ENCOUNTER 2025-04-25 09:50 | Outpatient (AMB) | payer OTHER, SELFPAY ==
[2025-04-25 09:57] VITALS: BP 122/56; PULSE 78; O2SAT 98; BMI 35.6
--- NOTE | 2025-04-25 09:57 | MHC.OFFVIS ---
Vital Signs 04/25/25 09:57 Height 5 ft 1 in Weight 188 lb 7.924 oz BMI 35.6 BP 122/56 L Blood Pressure Location Lt brachial Position Sitting Pulse 78 Pulse Source Pulse Oximeter Pulse Oximetry (%) 98 Oxygen Delivery Method Room Air Intake Visit Reasons: Asthma Allergies leflunomide Allergy (Severe, Verified 04/25/25 10:00) Rash and Hives levofloxacin Allergy (Severe, Verified 04/25/25 10:00) Rash and Hives penicillin V Allergy (Severe, Verified 04/25/25 10:00) Rash and Hives Erythromycin Allergy (Severe, Uncoded 08/17/24 14:25) Rash and Hives Shrimp Allergy (Severe, Uncoded 08/17/24 14:25) Rash and Hives HPI Comments Details: The patient is a 69 y/o woman with a history of asthma and TENZIN on CPAP. Her asthma is in good controlled on her current respiratory medications. She has not taking inhaled corticosteroid at this time in seems to be doing okay without it which is reassuring. She does have a Combivent Respimat device that she uses twice a day with good effect. She is not interested inhaled cortical steroid at this time. She is concerned about her diabetes. In the meantime her CPAP therapy has been affecting beneficial. She does try to use it more than 4 hours a night. However, has been having some issues with her insurance company in her [employer] company which is getting bills and she is concerned because she is not getting any supplies at this time. In addition to that she is complaining of nasal congestion. She thinks she has allergies going on. Resulting a postnasal drip and cough. Has not had allergy testing. 04/12/2023 the patient is here for a pulmonary follow-up visit. She is complaining of worsening cough. She has been noticing when she goes outside specially around grass or any other allergen she can develop worsening cough and then she gets upset. She has been having some chest congestion. [id number] severity. She states that the last time she had that she had bronchitis. Otherwise she is using her respiratory therapy. It is partially helpful. On examination she does have some rhonchi and coarse breath sounds on the left base. Therefore will go ahead and start treating her for potential bacterial bronchitis. The patient also had blood work the back in March 2022 including a sedimentation rate which was elevated at 75. Prior to that was elevated up to the 90s. The patient will go and have blood work and also a chest x-ray when she is able. The if she she continues use her respiratory therapy as prescribed with good effect. 10/11/2023 the patient is here for a pulmonary follow-up visit. The patient continues to have some shortness breath with activity. She has been using her Symbicort with good effect. She also has a rescue inhaler that she uses less than 2 times week. She has been struggling with her daytime drowsiness. She does have a history sleep apnea although her last sleep study did not demonstrate any sleep apnea. She does have headaches in the morning and has witnessed apneic episodes and also snoring from her . He is very concerned with her untreated apnea this time. EPWORTH 08/20. The best way to further evaluate the symptoms would be with an in-lab sleep study. Will request 1 at this time specially since she failed a home sleep study. In addition to that she did have a chest x-ray done over the fall. I did personally review with the patient. It appears that her cardiac size is little bit bigger than normal and she also has a small murmur. Therefore will go ahead and request an echocardiogram. The patient will continue with current respiratory therapy and will follow-up in 3-4 months to review the results. 03/29/2024 the patient is here for a pulmonary follow-up visit. The patient has had an eventful several months. She developed significant worsening respiratory symptoms. She was evaluated in the ER where she had a CT scan of the chest. Demonstrated bibasilar airspace disease and pneumonitis. Likely aspiration pneumonia. She was treated effectively for that. The patient also given steroids. Her symptoms improved partially. Although she still having hard time with a cough and some shortness of breath. Still having hard time expectorating. Again, I personally reviewed the CT scan and also demonstrated a large thyroid goiter that was causing near complete obstruction of the trachea. Please refer to the pictures provided on the progress note. She also underwent spirometry. Seems to be have some plateauing of the inspiratory flows suggesting a component of an extrathoracic dynamic obstruction. In view of the findings I will go ahead and refer her to [facility] general surgery for evaluation for surgery for this extrinsic compression of the trachea from the thyroid. The patient also having significant daytime drowsiness. She does have an elevated [place] score of 11/24. She was supposed to undergo an in-lab sleep study but with everything going on she put that side. She needs to call make an appointment in order to in order to have that done. She continues use her respiratory therapy. In view of the findings on the CT scan also going to request she gets blood work. Patient returned to 3 months. If she has any worsening symptoms she will call for an earlier assessment. 08/17/2024 The patient is here for pulmonary follow-up visit. Overall she is doing okay. Seems like she is doing better with her sleep. Her [place] score is better 8/24. She did not have her sleep study. At this point will reassess after her thyroid surgery. She is having some difficulty swallowing now so is good that she is going to have the thyroid resection. We did review her last CT scan did demonstrate a small pulmonary nodule measuring 5 mm. She will require repeat CAT scan sometime in late spring early summer. She continues with respiratory therapy with good effect. At this point will continue current respiratory regimen will follow-up in 6-[address] scan to follow-up pulmonary nodule. At that point will reassess for underlying sleep apnea need for sleep study. 04/25/2025 the patient is here for a pulmonary follow-up visit. Overall she is doing okay. She is recovering well after her thyroid resection. Denies any significant snoring now. She is actually sleeping better. Her daytime drowsiness is improving her [place] score is improve 6/24. Therefore no need for sleep study at this time. She did undergo a CT scan of the chest that was personally by me March 2025. I did compare to her CAT scan from 2023 where she had a [facility]. Looks like she has some evidence of interstitial lung disease right lung more than left. Indeed this could be residual from her infectious process chest she had back then. Will have to assess further progression with serial CAT scans. In the meantime the patient does have a 5 x 7 mm pulmonary nodule. Hard to say for sure if we can see it clearly on a previous CAT scan in view of her significant airspace disease. Will plan to repeat a CAT scan in 6-8 months. Follow-up with the patient then. In the meantime she is going to continue with the current respiratory therapy. 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 Vitamin D deficiency Diabetic nephropathy associated with type 2 diabetes mellitus Diabetes type 2, uncontrolled Surgical History Hx of wisdom tooth extraction Hx of eye surgery Hx of colonoscopy History of total abdominal hysterectomy and bilateral salpingo-oophorectomy Hx of tubal ligation History of appendectomy Family History Father Lung cancer Diabetes mellitus Mother Diabetes mellitus Pulmonary embolism Social History Household Members: Spouse Alcohol intake: never Patient Tobacco Use Status: Never used Tobacco Review of Systems Const Reports difficulty sleeping, Denies excessive sweating, Denies fatigue, Reports snoring, Denies weight gain and Denies weight loss Eyes Denies blurry vision and Denies diplopia ENT Denies change in voice, Denies dysphagia and Denies hoarseness Card Denies chest pain, Denies irregular heart rhythm, Denies dyspnea and Reports other Resp Reports chest congestion, Reports cough, Denies dyspnea, Reports snoring and Reports wheezing GI Denies abdominal pain, Denies change in bowel habits, Denies dysphagia, Denies diarrhea and Denies nausea Musc Denies myalgias, Denies muscle cramps, Denies numbness and Denies tingling Skin/Breast Denies hirsutism and Denies alopecia Neuro Denies numbness and Denies tingling Psych Denies anxiety and Denies depression Endo Denies cold intolerance, Denies excessive sweating, Denies fatigue and Denies heat intolerance Leighton/Lymph Denies easy bruising Aller/Immun Reports wheezing Physical Exam Vital Signs: Last Vital Signs Pulse 78 04/25/25 09:57 BP 122/56 L 04/25/25 09:57 Pulse Ox 98 04/25/25 09:57 Oxygen Delivery Method Room Air 04/25/25 09:57 BMI result Body Mass Index 35.6 Const General: alert Neck Neck: Yes normal visual inspection, Yes full ROM, Yes no lymphadenopathy and Yes supple Chest Chest palpation & inspection: normal inspection of the chest Resp Effort & Inspection: normal respiratory effort and no stridor Auscultation: diminished lung sounds Cardio Rate: regular rate Rhythm: regular rhythm Heart sounds: S1 normal heart sound present and S2 normal heart sound present GI Palpation (GI): Soft to palpation and nontender Auscultation: normal bowel sounds Skin General skin exam: rashes and/or lesions noted Assessment & Plan Assessment & Plan (1) Asthma: Code(s): J45.909 - Unspecified asthma, uncomplicated Category: Medical Qualifiers: Asthma complication type: uncomplicated Asthma persistence: persistent Asthma severity: moderate Qualified Code(s): J45.40 - Moderate persistent asthma, uncomplicated (2) Insomnia: Code(s): G47.00 - Insomnia, unspecified Category: Medical Qualifiers: Insomnia type: primary Qualified Code(s): F51.01 - Primary insomnia (3) Cardiomegaly: Comment: on CXR Code(s): I51.7 - Cardiomegaly Category: Medical (4) TENZIN (obstructive sleep apnea): Comment: elevated EPWORTH 11/24 with 2 neg home PSG Code(s): G47.33 - Obstructive sleep apnea (adult) (pediatric) Category: Medical (5) Thyroid goiter: Code(s): E04.9 - Nontoxic goiter, unspecified Category: Medical (6) Pulmonary nodule: Code(s): R91.1 - Solitary pulmonary nodule Category: Medical (7) ILD (interstitial lung disease): Code(s): J84.9 - Interstitial pulmonary disease, unspecified Category: Medical Plan continue Symbicort WILMA as needed continue astelin nasal spray holding In Lab PSG for persistent head time drowsiness and a previous h/o TENZIN. Will reassess after her surgery CT chest Spring 2024 to f/u 5x7mm pulmonary nodule F/U 8 months Orders: Orders CT chest wo IV con 7 Months J84.9 - Interstitial pulmonary disease, unspecified, R91.1 - Solitary pulmonary nodule Medications: Changed From Symbicort 160-4.5 mcg/actuation (budesonide-formoterol) 2 puffs inhalation BID 30 days 10.2 grams 11RF NS J44.9 - Chronic obstructive pulmonary disease, unspecified To budesonide-formoterol 160-4.5 mcg/actuation 2 puffs inhalation BID 10.2 grams 11RF 30 days NS J44.9 - Chronic obstructive pulmonary disease, unspecified Coding Level of Care Code Est Pt Level 4 (36895) Complex EM visit Add On G2211 Diagnoses Moderate persistent asthma without complication J45.40 Asthma complication type: uncomplicated Asthma persistence: persistent Asthma severity: moderate Primary insomnia F51.01 Insomnia type: primary Cardiomegaly I51.7 TENZIN (obstructive sleep apnea) G47.33 Thyroid goiter E04.9 Pulmonary nodule R91.1 ILD (interstitial lung disease) J84.9 Time Spent (min) 17
--- OUTSIDE RECORDS SUMMARY | 2025-04-25 10:29 | XMS_ITS | Clinical Summary ---
Author Organization [address] Address [address] [place] [phone] Phone Care Team Providers Care Student Services Representative Name Role Phone Luis Carlos Dela Cruz MD Primary Care Provider + [phone] Allergies Active Allergy Reactions Criticality Noted Date [...] tions:Diabetes mellitus type 2, with complication, on fdc insulin pump (CMS/HCC V24, CMS/HCC V28) Change [...] ns:Diabetes mellitus type 2, with complication, on fdc insulin pump ([facility] V24, [facility] V28) Change sensor every 10 days 3 each 11 09/12/20 24 Active BD Insulin Syringe Ultra-Fine 0.3 mL 30 gauge x 1/2 syringeIndicati ons:Diabetes mellitus type 2, with complication, on continuous churn buttermaker insulin pump ([facility] V24, [facility] V28) USE 1 SYRINGE THREE TIMES DAILY NEEDED IF NOT ON ISNULIN PUMP 300 each 3 01/02/20 25 Active semaglutide (Ozempic) 1 mg/dose (4 mg/3 mL) injection penIndications: Diabetes mellitus type 2, with complication, on fdc insulin pump ([facility] V24, [facility] V28) INJECT 1 MG UNDER THE SKIN [...] mellitus type 2, wi th complication, on continuous churn buttermaker insulin pump ([facility] V24, [facility] V28) 09/17/2023 Diverticulosis 09/17/2023 HTN (hypertension) 09/17/2023 Hyperlipemia 09/17/2023 RA (rheumatoid arthritis) ([facility] V24, [facility] V28) 09/17/2023 Murmur 07/30/2021 Overview (07/11/2024): Last [...] this time Asthma 11/04/2018 Chronic rheumatic arthritis ([facility] V24, [facility] V28) 11/04/2018 Overview (07/11/2024): Last Assessment & Plan: Patient complains of exquisite tenderness and does have exquisite tenderness on palpation of the scalp along the temporal artery on the left. She has a rheumatology appointment coming up this Wednesday asked her to talk to the beam builder about this also possible that she could have polymyalgia rheumatica in the setting of both Sjogren's syndrome and rheumatic arthritis. She states that her prednisone was recently decreased which could have triggered an episode of breakthrough Sjogren's disease ([facility] V24) 11/04/2018 Thrombophlebitis 11/04/2018 Overview (07/11/2024): Last Assessment & Plan: Patient has lower extremity edema secondary to venous insufficiency. It is very well-managed at this time. No further intervention is required Immunizations Name Administration Dates Next Due Pfizer SARS-CoV-2 COVID-19, mRNA, LNP-S, preservative free 01/05/2021,12/15/2020 Medical History Medical History Date Comments Diabetes mellitus type 2, wi th complication, on fdc insulin pump (CMS/HCC V24, CMS/HCC V28) 09/17/2023 DX:Diabetes mellitus type 2 , with complication, on continuous churn buttermaker insulin pump ([facility]) Diverticulosis 09/17/2023 DX:Diverticulosi s HTN (hypertension) 09/17/2023 [...] Diabetes mellitus type 2, with complication, on fdc insulin pump ([facility] V24, [facility] V28) BASIC METABOLIC PANEL Routine 08/23/2024 2:13 PM EST Diabetes mellitus type 2, with complication, on continuous churn buttermaker insulin pump (CMS/HCC V24, CMS/HCC V28) LIPID PANEL WITH REFLEX TO DIRECT LDL Routine 08/23/2024 2:13 PM EST Diabetes mellitus type 2, with complication, on fdc insulin pump ([facility] V24, [facility] V28) from Last 3 Months or Most Recently Relevant to Health Maintenance Results * (ABNORMAL) Hemoglobin A1c (11/30/2024 12:32 PM EST) Hemoglobin A1C 6.7(H) <6.5 % LAB CHEMISTRY METHOD 11/30/2024 9:01 PM EST [facility] Mean Bld Glu Estim. 146 mg/dL LAB CHEMISTRY METHOD 11/30/2024 9:01 PM EST [facility] Blood Venous blood specimen / Unknown Venipuncture / Unknown 11/30/2024 12:32 PM EST 11/30/2024 12:32 PM EST Mirlande BRIAN LAB BLOOD ORDERABLES Final Result [facility] [address] [place] [address], [place] [phone] * Lipid panel with reflex to direct LDL (08/23/2024 2:13 PM EST) Cholesterol 175 0 - 200 mg/dL LAB CHEMISTRY METHOD 08/23/2024 6:53 PM EST [facility] Triglycerides 95 0 - 150 mg/dL LAB CHEMISTRY METHOD 08/23/2024 6:53 PM EST [facility] HDL 70 >=40 mg/dL LAB CHEMISTRY METHOD 08/23/2024 6:53 PM EST [facility] LDL Calculated 86 0 - 100 mg/dL LAB CHEMISTRY METHOD 08/23/2024 6:53 PM EST [facility] VLDL Cholesterol [place] 19 mg/dL LAB CHEMISTRY METHOD 08/23/2024 6:53 PM EST [facility] Non HDL Chol. (LDL+VLDL) 105 <145 mg/dL LAB CHEMISTRY METHOD 08/23/2024 6:53 PM EST [facility] Chol/HDL Ratio 2.5 0.0 - 4.4 LAB CHEMISTRY METHOD 08/23/2024 6:[address] [facility] Blood Venous blood specimen / Unknown Venipuncture / Unknown 08/23/2024 2:13 PM EST 08/23/2024 2:13 PM EST Mirlande BRIAN LAB BLOOD ORDERABLES Final Result Performing Organization Address City/[facility]/ZIP Co de Phone Number [facility] [address] [place] [address], [place] [phone] * (ABNORMAL) Microalbumin creatinine urine ratio (08/23/2024 2:13 PM EST) Pathologist [facility] Creatinine, Urine 56.0 mg/dL LAB CHEMISTRY METHOD 08/23/2024 6:[address] [facility] Microalb, Ur 2,120.0(H ) 0.0 - 29.0 mg/L LAB CHEMISTRY METHOD 08/23/2024 6:[address] [facility] Comment:Results verified by repeat testing Microalb/Crea t Ratio 3,786(H) <30 mg/g creat LAB CHEMISTRY METHOD 08/23/2024 6:[address] [facility] Urine Urine specimen from urethra / Unknown Non-blood Collection / Unknown 08/23/2024 2:13 PM EST 08/23/2024 2:13 PM EST us Mirlande BRIAN LAB URINE ORDERABLES Final Result [facility] [address] [place] [address], [place] [phone] * (ABNORMAL) Basic metabolic panel (08/23/2024 2:13 PM EST) [facility] Sodium 139 133 - 145 mmol/L LAB CHEMISTRY METHOD 08/23/2024 6:[address] [facility] Potassium 4.4 3.5 - 5.5 mmol/L LAB CHEMISTRY METHOD 08/23/2024 6:[address] [facility] Chloride 108 96 - 110 mmol/L LAB CHEMISTRY METHOD 08/23/2024 6:[address] [facility] CO2 23 21 - 32 mmol/L LAB CHEMISTRY METHOD 08/23/2024 6:[address] [facility] Anion Gap 8 3 - 11 LAB CHEMISTRY METHOD 08/23/2024 6:[address] [facility] Glucose 160(H) 70 - 100 mg/dL LAB CHEMISTRY METHOD 08/23/2024 6:[address] [facility] BUN 49(H) 5 - 25 mg/dL LAB CHEMISTRY METHOD 08/23/2024 6:51 PM EST [facility] Creatinine 2.29(H) 0.50 - 1.10 mg/dL LAB CHEMISTRY METHOD 08/23/2024 6:[address] [facility] eGFR 23(L) >=60 mL/min/1. 73m2 LAB CHEMISTRY METHOD 08/23/2024 6:51 PM EST [facility] Comment:Calculation based on the Chronic Kidney Disease Epidemiology Collaboration (CKD-EPI) equation refit without adjustment for race. BUN/Creatinine Ratio 21.4 LAB CHEMISTRY METHOD 08/23/2024 6:[address] [facility] Calcium 9.0 8.5 - 10.5 mg/dL LAB CHEMISTRY METHOD 08/23/2024 6:[address] [facility] Blood Venous blood specimen / Unknown Venipuncture / Unknown 08/23/2024 2:13 PM EST 08/23/2024 2:13 PM EST Mirlande BRIAN LAB BLOOD ORDERABLES Final Result [facility] [address] [place] [address], from Last 3 Months or Most Recently Relevant to Health Maintenance Insurance [facility] MEDIC[facility] Member Subscriber Plan / Payer (Ef fective 2022-Present) Name:Oliva Blake Relation to Subscriber:Self Name:Oliva Blake Payer ID:[id number] Group ID:[id number] Type:Not on file Address: [address] [place] [id number] Advance Directives Documents on File Type Date Recorded Patient 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
--- OUTSIDE RECORDS SUMMARY | 2025-04-25 10:29 | XMS_ITS | Clinical Summary ---
Author Organization [facility] Address [address] [place] [address] Care Team Providers Care Cloud Architect Name Role Phone Luis Carlos Dela Cruz Primary Care Provider Unavail able Santy Brandon MD Unavailable [phone] Janelle Ocasio NP Unavailable [phone] Allergies Active Allergy Reactions Severity Noted Date Comments Erythrocin 11/04/2018 Leflunomide 11/04/2018 Levofloxacin 11/04/2018 Penicillins 11/04/2018 Medications Medication Sig Dispensed Refills Start Date End Date Status Albuterol Sulfate 108 (90 BASE) MCG/ACT AEROSOL POWDER,BREATH ACTIVATED Inhale into the lungs as needed. 0 Active rosuvastatin (CRESTOR) 40 MG tablet Take 40 mg by mouth daily. 0 Active Aspirin (ASPIR-81 OR) Take 1 Tablet by mouth daily. 0 Active Ferrous Sulfate (IRON) 325 (65 FE) MG Tab Take 1 Tablet by mouth 3 times daily. 0 Active losartan (COZAAR) 100 MG tablet Take 100 mg by mouth daily. 0 Active furosemide (LASIX) 20 MG tablet Take 20 mg by mouth daily. 0 Active montelukast (SINGULAIR) 10 MG tablet Take 10 mg by mouth at bedtime. 0 Active sertraline (ZOLOFT) 100 MG tablet Take 100 mg by mouth daily. 0 Active Insulin Disposable Pump (OMNIPOD) Misc by Does not apply route. 0 Active busPIRone (BUSPAR) 10 MG tablet Take 1 Tablet by mouth 2 times daily. 0 Active tramadol (ULTRAM) 50 MG tablet Take 1 Tablet by mouth 3 times daily as needed. 0 Active Golimumab 50 MG/0.5ML Solution Auto-injector Inject into the skin every 30 days. 0 Active Cholecalciferol (Vitamin D3) 50 MCG (2000 UT) Tab Take 1 Tablet by mouth daily. 0 Active predniSONE (DELTASONE) 5 MG tablet Take 1 Tablet by mouth daily. 0 Active CINNAMON OR Take 2,000 mg by mouth 2 times daily. 0 Active Continuous Blood Gluc Transmit (Dexcom G6 Transmitter) Misc 1 Device by Does not apply route See Admin Instructions. Change transmitter every 3 months. 1 Each 3 09/15/2023 Active Diclofenac Sodium 1 % Gel Apply 4 g topically 2 times daily. 100 g 2 11/03/2023 Active Insulin Glargine (Lantus SoloStar) 100 UNIT/ML Solution Pen-injector INJECT 20 UNITS SUBCUTANEOUSLY ONCE DAILY NEEDED WHEN NOT ON INSULIN PUMP 15 mL 0 02/28/2024 Active Continuous Glucose Transmitter (Dexcom G6 Transmitter) Misc Use daily, change every 3 months 1 Each 3 04/18/2024 Active Continuous Glucose Sensor (Dexcom G6 Sensor) Misc by Does not apply route. 3 Each 04/18/2024 Active Insulin Disposable Pump (Omnipod 5 G6 Pods, Gen 5,) MiscIndications:Di abetes mellitus type 2, with complication, on parts counterman insulin pump ([facility]) 1 Device by Does not apply route See Admin Instructions. USE DIRECTED CHANGE EVERY 3 DAYS 10 Each 04/18/2024 Active Dapagliflozin Propanediol 10 MG TabIndications:Concepción betes mellitus type 2, with complication, on group home insulin pump ([facility]) Take 10 mg by mouth daily. 90 Tablet 1 04/18/2024 Active Insulin Lispro 100 UNIT/ML Solution Inject 50 Units as directed daily. Use daily with insulin pump. Max daily dose 50 units. When not on insulin pump do sliding scale 3 times a day with meals per scale 100-150: 1 units; 151-200: 2 units; 201-250: 3 units; 251-300: 4 units; 301-350: 5 units, 351-400: 6 units 30 mL 5 04/18/2024 Active Semaglutide,0.25 or 0.5MG/DOS, (Ozempic, 0.25 or 0.5 MG/DOSE,) 2 MG/3ML Solution Pen-injector Inject 0.5 mg into the skin every 7 days. 3 mL 5 04/18/2024 Active BD Insulin Syringe U/F 30G X 1/2 0.3 ML Misc USE 1 SYRINGE THREE TIMES DAILY NEEDED IF NOT ON INSULIN PUMP 100 Each 5 06/30/2024 Active Glucagon, rDNA, (Glucagon Emergency) 1 MG Kit INJECT NEEDED FOR LOW BLOOD SUGAR 1 Kit 1 07/17/2024 Active Active Problems Problem Noted Date Diabetes mellitus type 2, with complicat ion, on group home insulin pump 09/17/2023 Anxiety 09/17/2023 Diverticulosis 09/17/2023 HTN (hypertension) 09/17/2023 Hyperlipemia 09/17/2023 RA (rheumatoid arthritis) 09/17/2023 Murmur 07/30/2021 Last Assessment & Plan: Patient has a very minimal left ventricular outflow tract murmur consistent with very mild aortic sclerosis with no significant stenosis Cardiac murmur 07/28/2021 Last Assessment & Plan: Patient is a cardiac murmur that sounds as if it is just mild aortic sclerosis. We will send her for an echocardiogram to assess the severity of any of the valvular heart disease otherwise no changes in medical therapy at this time Asthma 11/04/2018 Thrombophlebitis 11/04/2018 Last Assessment & Plan: Patient has lower extremity edema secondary to venous insufficiency. It is very well-managed at this time. No further intervention is required Sjogren's disease 11/04/2018 Chronic rheumatic arthritis 11/04/2018 Last Assessment & Plan: Patient complains of exquisite tenderness and does have exquisite tenderness on palpation of the scalp along the temporal artery on the left. She has a rheumatology appointment coming up this Wednesday asked her to talk to the medical care evaluation specialist about this also possible that she could have polymyalgia rheumatica in the setting of both Sjogren's syndrome and rheumatic arthritis. She states that her prednisone was recently decreased which could have triggered an episode of breakthrough Social History Tobacco Use Types Packs/Day Years Used Date Smoking Tobacco: Former Cigarettes 2 Q uit: 2009 Smokeless Tobacco: Never Tobacco Cessation:Counseling Given: Not Answered Alcohol Use Standard Drinks/Week Comments Not Currently 0 (1 standard drink = 0.6 oz pur e alcohol) Sex Assigned at Date Recorded Not on file Job Start Date Occupation Industry Not on file Not on file Not on file Last Filed Vital Signs Vital Sign Reading Time Taken Comments Blood Pressure 136/64 04/18/2024 10:58 AM EDT Pulse 86 04/18/2024 10:58 AM EDT Temperature 36.8 C (98.3 F) 04/18/2024 10:58 AM EDT Respiratory Rate 18 04/18/2024 10:5 8 AM EDT Oxygen Saturation 95% 04/18/2024 10: 58 AM EDT at rest, room air Inhaled Oxygen Concentration - - Weight 84.4 kg (186 lb) 04/18/2024 10:5 8 AM EDT Height 154.9 cm (5' 1 ) 04/18/2024 10:5 8 AM EDT Body Mass Index 35.14 04/18/2024 10:58 AM EDT Plan of Treatment Health Maintenance Due Date Last Done Comments DIABETES: ANNUAL EYE EXAM 1975 DIABETES: ANNUAL FOOT EXAM 1975 HEPATITIS C SCREENING 1975 MAMMOGRAM 1997 COLON CANCER SCREENING 2007 SHINGLES VACCINE (1 of 2) 2007 BONE DENSITY SCREENING 2022 PNEUMOCOCCAL VACCINE (1 - PCV) 2022 DIABETES: BLOOD SUGAR CONTRO L TEST (HGBA1C) 02/01/2024 11/03/2023 DTAP/TDAP/TD (2 - Td or Tdap) 02/27/2024 02/26/2014 Covid-19 Vaccine (3 - 2022-2 4 season) 2024 01/05/2021, 12/15/2020 BMI CHECK/ADVISE 09/27/2024 04/18/2024, , 09/15/2023, Additional history exists DIABETES/HEART DISEASE: SOLIS GONZALEZ CHOLESTEROL (LDL) 10/22/2024 10/22/2023 DIABETES: ANNUAL URINE PROTE IN TEST (MICROALBUMIN) 10/22/2024 10/22/2023 INFLUENZA (#1) 2025 Care Teams Cloud Architect Relationship Specialty Start Date End Date Luis Carlos Dela Cruz PCP - General Internal Medicine 06/06/21 Santy Brandon MD [address] [place] [address] [address] [place] [address] Finished Goods Stock Clerk Cardiovascular Disease 06/06/21 Janelle Ocasio NP [address] [place] [address] [address] [place] [address] Nurse Practitioner Cardiology 06/06/21
--- OUTSIDE RECORDS SUMMARY | 2025-04-25 10:30 | XMS_ITS | Clinical Summary ---
Author Organization [facility] Address [address] [place] [phone] Phone Care Team Providers Care School Crossing Guard Supervisor Name Role Phone Luis Carlos Dela Cruz MD Primary Care Provider Allergies Active Allergy Reactions Criticality Noted Date [...] Wednesday asked her to talk to the financial internship about this also possible that she could [...] Orders Only [facility] [place] [address] [phone] Eugenia Emery ARNP [address] [phone] Stage 3b chronic kidney disease (HCC); Hypertension; Hyperkalemia; Proteinuria, not otherwise specified; Secondary hyperparathyroidism of renal origin (HCC); Vitamin D deficiency, not otherwise specified; Anemia in chronic kidney disease 05/31/2025 11:30 AM EDT Office Visit [facility] [place] [address] [phone] Eugenia Emery ARNP [address] [phone] Health Maintenance Due Date Last [...] AM EDT) Hemoglobin A1C 6.6(H) (4.0-5.6) % [facility] Comment: MONITORING: In known diabetic patients, hemoglobin A1c targets should be discussed with health care provider. DIAGNOSTIC USE: The [place] [employer] (ADA) and the World Health [...] Supplement 1 Testing performed or reported by [facility], a Service of [facility], [address] [place] [address] Carmelina Martinez MD, Store Coordinator [facility]# [id number] Blood specimen (specimen) Venous blood / Unknown 01/13/2023 10:35 AM EDT 01/13/2023 10:38 AM EDT Navin Rodriguez MD LAB BLOOD ORDERABLES Final Re sult [facility] from Last 3 Months or Most Recently Relevant to Health Maintenance Insurance [facility] ([id number]) [facility] ([id number]) Care Teams School Crossing Guard Supervisor Relationship Specialty Start Date End Date Luis Carlos Dela Cruz MD [address] [place] [address] PCP - General Internal Medicine 12/28/23
== END 2025-04-25 10:27 | disposition home or self-care (01) ==
LOC: HO.HPS 09:51
PROVIDERS: PCP Internal Medicine; Visit Provider Hospitalist
DX: J45.40 Moderate persistent asthma, uncomplicated (principal); F51.01 Primary insomnia; I51.7 Cardiomegaly; G47.33 Obstructive sleep apnea (adult) (pediatric); E04.9 Nontoxic goiter, unspecified; R91.1 Solitary pulmonary nodule; J84.9 Interstitial pulmonary disease, unspecified
CPT/HCPCS: 99214; G2211

== ENCOUNTER → 2025-04-25 09:50 | Outpatient (BNVA) | payer OTHER, SELFPAY | PROVIDERS: PCP Internal Medicine; Visit Provider Hospitalist | DX: J45.40 Moderate persistent asthma, uncomplicated (principal); F51.01 Primary insomnia; I51.7 Cardiomegaly; G47.00 Insomnia, unspecified; G47.33 Obstructive sleep apnea (adult) (pediatric); E04.9 Nontoxic goiter, unspecified; R91.1 Solitary pulmonary nodule; J84.9 Interstitial pulmonary disease, unspecified | CPT/HCPCS: 99212 ==